=== PATIENT | male | born 1955 | race Caucasian/White ===

== ENCOUNTER 2017-09-18 11:24 | Emergency (ER) | payer OTHER ==
[~2017-09-18] VITALS: Ht 180.3 cm; Wt 103.0 kg
[~2017-09-18 11:24] MED LIST: ADVIL PM CAPLE1 EACH PO; AMBIEN10 MG PO; AMLODIPINE PO; ASPIRIN EC81 MG PO; ATORVASTATIN CA20 MG PO; CENTRUM SILVER1 EAC3 PO; CEREFOLIN TABL1 EACH PO; COREG12.5 MG PO; DIOVAN320 MG PO; FISH OIL 1,0001 EAC2 PO; FUROSEMIDE PO; FUROSEMIDE40 MG PO; HYDROCHLOROTHIA25 MG PO; LEVEMIR SQ; LEVEMIR100 UNIT/1 SQ; METFORMIN HCL500 MG PO; METOPROLOL TART50 MG PO; NEXIUM20 MG PO; OMEPRAZOLE20 MG PO; PANTOPRAZOLE SO40 MG PO; PEGASYS180 MCG/0.; PRAVASTATIN SOD20 MG PO; REGLAN PO; RIBASPHERE600 MG PO; SOVALDI; VASCEPA PO; VICTOZA 2-0.6 MG/0.1 SC; VIT D PO; VITAMIN E400 UNI1 PO
[2017-09-18] MEDS ORDERED: ALLOPURINOL100 MG PO (11:58)
[2017-09-18] MEDS ORDERED: VICTOZA 3-0.6 MG/0.1 (11:58)
[2017-09-18 12:12] VITALS: BP 139/84
== END 2017-09-18 12:14 | disposition home or self-care (01) ==
LOC: FSED 11:24
DX: L02.31 Cutaneous abscess of buttock (principal); L03.115 Cellulitis of right lower limb
CPT/HCPCS: 87071; 87205; 99283

== ENCOUNTER 2017-10-22 07:53 | Observation (INO) | payer OTHER ==
[~2017-10-22] VITALS: Ht 180.3 cm; Wt 103.9 kg
[~2017-10-22 07:53] MED LIST changes: +ALLOPURINOL100 MG PO; +VICTOZA 3-0.6 MG/0.1
[2017-10-22] MEDS ORDERED: ONDANSETRON HCL INJ 2 MG/ML VIAL IV STA (08:34)
[2017-10-22] MEDS ORDERED: HYDROMORPHONE 1MG/1ML INJ IV STA (08:34)
[2017-10-22] MEDS ORDERED: PIPER-TAZ 3.375 GM 50 ML IV ONE (08:45)
[2017-10-22] MEDS ORDERED: METRONIDAZOLE 500MG/NS 100ML 100 ML IV ONE (08:45)
[2017-10-22] MEDS ORDERED: MORPHINE SULFATE 2 MG/ML SYR IV STA (09:12)
[2017-10-22] MEDS ORDERED: SODIUM CHLORIDE 0.9% 1000ML 1,000 ML IV SCH (09:15)
[2017-10-22] MEDS ORDERED: AMLODIPINE BESYL5 MG PO (09:45)
[2017-10-22] MEDS ORDERED: FUROSEMIDE20 MG PO (09:45)
[2017-10-22] MEDS ORDERED: VICTOZA 2-0.6 MG/0.1 SQ (09:45)
[2017-10-22] MEDS ORDERED: IRBESARTAN150 MG PO (09:48)
[2017-10-22] MEDS ORDERED: VITAMIN D1000 UNI1 PO (09:48)
[2017-10-22] MEDS ORDERED: TRESIBA SQ (09:50)
--- NOTE | 2017-10-22 10:11 | Diagnostic Imaging Report ---
EXAM: CT Pelvis WITH contrast INDICATION: ABSCESSES TO THE BUTTOCKS. LEFT-SIDED PERIRECTAL ABSCESS. COMPARISON: None. TECHNIQUE: Pelvis were scanned utilizing a multidetector helical scanner from the iliac crest to the pubic symphysis after administration of IV contrast. Coronal and sagittal reformations were obtained. Routine protocol was performed. Scan was performed when during portal venous phase. IV CONTRAST: 95 mL of Isovue 300 ORAL CONTRAST: Water COMPLICATIONS: None RADIATION DOSE: Total DLP: 391.09 mGy*cm Estimated effective dose: (DLP x 0.015 x size factor) mSv CTDIvol has been reviewed. It is below the limits set by the Radiation Protocol Committee (RPC). FINDINGS: LINES and TUBES: None. GI TRACT: No abnormal distention, wall thickening, or evidence of bowel obstruction. Appendix is normal. PELVIC ORGANS/BLADDER: Unremarkable. LYMPH NODES: No lymphadenopathy. VESSELS: Unremarkable. PERITONEUM / RETROPERITONEUM: No free air or fluid. BONES: Unremarkable. SOFT TISSUES: Soft tissue inflammatory changes measuring 1.5 x 3.2 cm in the left gluteal fold. This extends superiorly but does not involve the anus. No actual fluid collection. IMPRESSION: Left gluteal inflammatory changes without discrete abscess collection. Signed by: Dr. Carter Ramsey M.D. on 10/22/2017 10:07 AM
[2017-10-22] MEDS ORDERED: DEXTROSE 50% SYRINGE 50 ML IV PRN (10:30)
[2017-10-22] MEDS ORDERED: HYDROMORPHONE 1MG/1ML INJ IV PRN (10:30)
[2017-10-22] MEDS ORDERED: MORPHINE SULFATE INJ 4 MG/ML INJ IV ONE (11:30)
[2017-10-22] MEDS: INSULIN REGULAR, HUMAN 100 UNIT/1 ML 3ML VIAL SQ SCH ×3 (11:30→20:39)
[2017-10-22] MEDS: VANCOMYCIN 1GM/NS 250 ML 250 ML IV SCH ×2 (12:25→21:45)
[2017-10-22] MEDS: SODIUM CHLORIDE 0.9% 1000ML 1,000 ML IV SCH (12:25)
[2017-10-22 13:56] LABS: BASOPHILS % 0.3 % (0.0-1.0); EOSINOPHILS # (AUTO) 0.2 (0.0-0.4); EOSINOPHILS % 2.4 % (0.0-6.0); HEMATOCRIT 35.6 % (38.2-49.6); HEMOGLOBIN 12.4 g/dL (14.0-18.0); LYMPHOCYTES # (AUTO) 1.4 (1.0-3.2); LYMPHOCYTES % 13.9 % (18.0-39.1); MEAN CORPUSCULAR HEMOGLOBIN 31.4 pg (28-32); MEAN CORPUSCULAR HGB CONC 34.8 g/dL (31-35); MEAN CORPUSCULAR VOLUME 90.1 fL (81-99); MONOCYTES # (AUTO) 0.9 (0.2-0.8); MONOCYTES % 8.9 % (4.4-11.3); NEUTROPHILS # (AUTO) 7.3 (2.1-6.9); NEUTROPHILS % 74.1 % (38.7-80.0); PLATELET COUNT 186 x10e3/uL (140-360); RED BLOOD COUNT 3.95 x10e6/uL (4.3-5.7)
[2017-10-22] MEDS: METRONIDAZOLE 500MG/NS 100ML 100 ML IV SCH ×3 (14:00→23:35)
[2017-10-22] MEDS: INSULIN LISPRO 100 UNIT/1 ML 3ML VIAL SQ SCH ×2 (16:30→20:40)
[2017-10-22 16:38] VITALS: BP 141/74
--- NOTE | 2017-10-22 16:40 | History and Physical ---
HISTORY OF PRESENT ILLNESS: This is a 61-year-old male with past medical history positive for hypertension, diabetes, aortic valve replacement with a porcine valve, came here with perirectal pain. REVIEW OF SYSTEMS CARDIOVASCULAR: No chest pain or palpitation. RESPIRATORY: No shortness of breath. No cough. GASTROINTESTINAL: No nausea, vomiting or diarrhea. GENITOURINARY: No frequency or dysuria. ALLERGIES: HE CLAIMS THAT HE IS NOT ALLERGIC TO ANY MEDICATION. SOCIAL HISTORY: He does not smoke. He does not drink. PAST MEDICAL HISTORY: Hypertension, diabetes, and aortic stenosis status post porcine aortic valve replacement. PHYSICAL EXAMINATION HEART: Regular rhythm. Normal S1, S2 sounds. LUNGS: Clear bilaterally. ABDOMEN: Soft. EXTREMITIES: Showed no evidence of cyanosis, edema, or trauma. On the perirectal area catheter, some drainage and tenderness. FINAL IMPRESSION 1. Perirectal cellulitis. 2. Uncontrolled diabetes mellitus type 2. 3. Hypertension. 4. Aortic stenosis status post porcine aortic valve replacement. PLAN OF TREATMENT: Continue metronidazole 400 mg IV q.6 hours, vancomycin 1 gram IV twice a day. We are going to resume the home medications, diabetic diet. Monitor blood sugar a.c. and h.s. Consult Dr. Israel Norris for surgery. Job#: [id number] GUILHERME
[2017-10-22] MEDS: VASCEPA 1 GM PO SCH (16:47)
[2017-10-22] MEDS: CARVEDILOL 12.5 MG TAB PO SCH (16:48)
[2017-10-22 19:57] VITALS: BP 133/62
[2017-10-22 20:00] VITALS: BP 133/62
[2017-10-22] MEDS: ZOLPIDEM TARTRATE 10 MG TAB PO PRN (20:46)
[2017-10-22] MEDS: ATORVASTATIN 40 MG TAB PO SCH (20:47)
[2017-10-23] VITALS (8 sets, daily range): BP systolic 118–150; BP diastolic 56–78
[2017-10-23] MEDS: SODIUM CHLORIDE 0.9% 1000ML 1,000 ML IV SCH ×4 (02:57→15:28)
[2017-10-23 04:53] LABS: BASOPHILS % 0.4 % (0.0-1.0); EOSINOPHILS # (AUTO) 0.3 (0.0-0.4); EOSINOPHILS % 2.8 % (0.0-6.0); HEMATOCRIT 32.7 % (38.2-49.6); HEMOGLOBIN 11.3 g/dL (14.0-18.0); LYMPHOCYTES # (AUTO) 1.3 (1.0-3.2); LYMPHOCYTES % 13.4 % (18.0-39.1); MEAN CORPUSCULAR HEMOGLOBIN 31.2 pg (28-32); MEAN CORPUSCULAR HGB CONC 34.6 g/dL (31-35); MEAN CORPUSCULAR VOLUME 90.3 fL (81-99); MONOCYTES % 11.1 % (4.4-11.3); NEUTROPHILS # (AUTO) 6.7 (2.1-6.9); PLATELET COUNT 172 x10e3/uL (140-360); RED BLOOD COUNT 3.62 x10e6/uL (4.3-5.7); RED CELL DISTRIBUTION WIDTH 12.9 % (11.7-14.4)
[2017-10-23 05:04] LABS: INR 1.11; PROTHROMBIN TIME 13.5 seconds (11.9-14.5)
[2017-10-23 05:05] LABS: PARTIAL THROMBOPLASTIN TIME 30.1 seconds (23.8-35.5)
[2017-10-23 05:10] LABS: ANION GAP 13.9 mmol/L (8-16); BLOOD UREA NITROGEN 17 mg/dL (7-26); BUN/CREATININE RATIO 17 (6-25); CALCIUM 8.2 mg/dL (8.4-10.2); CARBON DIOXIDE 25 mmol/L (22-29); CHLORIDE 104 mmol/L (98-107); CREATININE, SERUM 1.02 mg/dL (0.72-1.25); EST GLOMERULAR FILTRATION RATE > 60 ML/MIN (60-); GLUCOSE 91 mg/dL (74-118); POTASSIUM 3.9 mmol/L (3.5-5.1); SODIUM 139 mmol/L (136-145)
[2017-10-23] MEDS: METRONIDAZOLE 500MG/NS 100ML 100 ML IV SCH ×3 (05:13→17:15)
[2017-10-23] MEDS: INSULIN LISPRO 100 UNIT/1 ML 3ML VIAL SQ SCH ×4 (07:30→21:00)
[2017-10-23] MEDS: INSULIN REGULAR, HUMAN 100 UNIT/1 ML 3ML VIAL SQ SCH ×4 (07:30→21:00)
[2017-10-23] MEDS: FUROSEMIDE 20 MG TAB PO SCH (08:06)
[2017-10-23] MEDS: AMLODIPINE BESYLATE 5 MG TAB PO SCH (08:06)
[2017-10-23] MEDS: ALLOPURINOL 100 MG TAB PO SCH (08:06)
[2017-10-23] MEDS: CHOLECALCIFEROL 1,000 UNIT TAB PO SCH (08:06)
[2017-10-23] MEDS: PANTOPRAZOLE SOD 40 MG TABEC PO SCH (08:20)
[2017-10-23] MEDS: ASPIRIN 81 MG ENTERIC COATED PO SCH (08:20)
[2017-10-23] MEDS: IRBESARTAN 150 MG TAB PO SCH (08:20)
[2017-10-23] MEDS: CARVEDILOL 12.5 MG TAB PO SCH ×2 (08:20→17:14)
[2017-10-23] MEDS: LMEFOLATE CA PO SCH (08:50)
[2017-10-23] MEDS: VASCEPA 1 GM PO SCH ×2 (08:50→17:00)
[2017-10-23] MEDS: VIT B12 PO SCH (08:50)
[2017-10-23] MEDS: B2 PO SCH (08:50)
[2017-10-23] MEDS: VIT B6 PO SCH (08:50)
[2017-10-23] MEDS: TRESIBA 100 UNIT/ML SC SCH (08:50)
[2017-10-23] MEDS: Liraglutide (Victoza 2-Pak) 1.8 MG SC SCH (08:51)
[2017-10-23] MEDS: VANCOMYCIN 1GM/NS 250 ML 250 ML IV SCH (10:00)
[2017-10-23] MEDS: ONDANSETRON HCL INJ 2 MG/ML VIAL IV PRN ×2 (12:00→17:30)
[2017-10-23] MEDS: HYDROMORPHONE 2MG/ML 2 MG/ML ML IV PRN ×3 (12:15→23:10)
--- NOTE | 2017-10-23 13:24 | Progress Note ---
DATE: INTERNAL MEDICINE PROGRESS NOTE SUBJECTIVE: Patient is doing better today. PHYSICAL EXAM VITAL SIGNS: Blood pressure 150/73, temperature 97.5, heart rate 86 per minute, respiratory rate 20 per minute. Oxygen saturation 96%. RECTAL: On the perirectal area, excessive tenderness area in the left gluteal area. EXTREMITIES: Show no evidence of cyanosis, edema or trauma. NEUROLOGIC: Alert and oriented x3. No motor deficits. On the BMP, sodium 139, potassium 3.9, chloride 104, CO2 25, BUN 17, creatinine 1.02, glucose 91. On the CBC, white blood count 9.33, hemoglobin 11.3, hematocrit 32.7, platelet count 172,000. PT 13.5, PTT 30.1, INR 1.11. FINAL IMPRESSION 1. Perirectal cellulitis. 2. Hypertension. 3. Hyperlipidemia. 4. Obesity. 5. Diabetes mellitus type 2. PLAN OF TREATMENT: We will continue with the current IV antibiotic therapy which includes metronidazole 500 mg IV q.6 hours, vancomycin 1 gram IV twice a day. Continue with Zofran 4 mg IV q.4 hours as needed for vomiting, Lipitor 40 mg at bedtime. Continue irbesartan 600 mg daily. Continue with Dilaudid 1 mg q.3 hours as needed only for severe pain, allopurinol 100 mg daily, carvedilol 25 mg twice a day, Protonix 40 mg daily, amlodipine 5 mg daily, vitamin D 2000 units daily, Ambien 10 mg at night. p.r.n. for sleep. Continue monitoring blood sugar a.c. and h.s. Continue diabetic diet. Continue aspirin 81 mg daily, furosemide [address] Israel Norris has seen the patient from the surgical point of view. His impression was that he had a left gluteal inflammation with no definitive abscess. He most likely might have a fistula. He recommended to continue the IV antibiotic, no need for incision and drainage yet. He recommended the patient to be discharged on oral antibiotic tomorrow and doing incision and drainage if necessary. Dr. Brooks will resume the care in the morning. Job#: [id number] NICANOR
[2017-10-23] MEDS: ATORVASTATIN 40 MG TAB PO SCH (22:00)
[2017-10-23] MEDS: ZOLPIDEM TARTRATE 10 MG TAB PO PRN (22:05)
[2017-10-24] VITALS (9 sets, daily range): BP systolic 124–150; BP diastolic 58–76
[2017-10-24] MEDS: METRONIDAZOLE 500MG/NS 100ML 100 ML IV SCH ×2 (00:14→06:36)
[2017-10-24] MEDS: SODIUM CHLORIDE 0.9% 1000ML 1,000 ML IV SCH ×2 (02:28→10:28)
[2017-10-24] MEDS: ONDANSETRON HCL INJ 2 MG/ML VIAL IV PRN ×2 (04:00→12:36)
[2017-10-24] MEDS: HYDROMORPHONE 2MG/ML 2 MG/ML ML IV PRN ×2 (04:00→12:36)
[2017-10-24] MEDS: INSULIN LISPRO 100 UNIT/1 ML 3ML VIAL SQ SCH ×4 (07:30→21:00)
[2017-10-24] MEDS: INSULIN REGULAR, HUMAN 100 UNIT/1 ML 3ML VIAL SQ SCH ×4 (07:30→22:56)
[2017-10-24] MEDS: PANTOPRAZOLE SOD 40 MG TABEC PO SCH (07:54)
[2017-10-24] MEDS: Liraglutide (Victoza 2-Pak) 1.8 MG SC SCH (09:00)
[2017-10-24] MEDS: TRESIBA 100 UNIT/ML SC SCH (09:00)
[2017-10-24] MEDS: VASCEPA 1 GM PO SCH ×2 (09:00→16:44)
[2017-10-24] MEDS: LMEFOLATE CA PO SCH (09:00)
[2017-10-24] MEDS: VIT B12 PO SCH (09:00)
[2017-10-24] MEDS: B2 PO SCH (09:00)
[2017-10-24] MEDS: VIT B6 PO SCH (09:00)
[2017-10-24] MEDS: CARVEDILOL 12.5 MG TAB PO SCH ×2 (09:39→16:44)
[2017-10-24] MEDS: CHOLECALCIFEROL 1,000 UNIT TAB PO SCH (09:39)
[2017-10-24] MEDS: AMLODIPINE BESYLATE 5 MG TAB PO SCH (09:39)
[2017-10-24] MEDS: IRBESARTAN 150 MG TAB PO SCH (09:39)
[2017-10-24] MEDS: ASPIRIN 81 MG ENTERIC COATED PO SCH (09:39)
[2017-10-24] MEDS: FUROSEMIDE 20 MG TAB PO SCH (09:39)
[2017-10-24] MEDS: ALLOPURINOL 100 MG TAB PO SCH (09:39)
[2017-10-24 11:00] LABS: BASOPHILS % 0.4 % (0.0-1.0); EOSINOPHILS # (AUTO) 0.2 (0.0-0.4); EOSINOPHILS % 1.7 % (0.0-6.0); HEMATOCRIT 33.9 % (38.2-49.6); HEMOGLOBIN 11.9 g/dL (14.0-18.0); LYMPHOCYTES # (AUTO) 0.9 (1.0-3.2); LYMPHOCYTES % 9.8 % (18.0-39.1); MEAN CORPUSCULAR HEMOGLOBIN 31.5 pg (28-32); MEAN CORPUSCULAR HGB CONC 35.1 g/dL (31-35); MEAN CORPUSCULAR VOLUME 89.7 fL (81-99); MONOCYTES # (AUTO) 0.9 (0.2-0.8); MONOCYTES % 9.4 % (4.4-11.3); NEUTROPHILS # (AUTO) 7.2 (2.1-6.9); NEUTROPHILS % 78.3 % (38.7-80.0); PLATELET COUNT 179 x10e3/uL (140-360); RED BLOOD COUNT 3.78 x10e6/uL (4.3-5.7); RED CELL DISTRIBUTION WIDTH 12.8 % (11.7-14.4)
[2017-10-24] MEDS: VANCOMYCIN 1GM/NS 250 ML 250 ML IV SCH ×3 (11:17→21:30)
[2017-10-24] MEDS: CEFEPIME HCL 1 GM VIAL IV SCH ×2 (11:17→21:43)
[2017-10-24 11:18] LABS: ALANINE AMINOTRANSFERASE 25 IU/L (0-55); ALBUMIN/GLOBULIN RATIO 1.1 (0.8-2.0); ALKALINE PHOSPHATASE 76 IU/L (40-150); ANION GAP 11.2 mmol/L (8-16); BLOOD UREA NITROGEN 13 mg/dL (7-26); BUN/CREATININE RATIO 13 (6-25); CALCIUM 8.8 mg/dL (8.4-10.2); CARBON DIOXIDE 27 mmol/L (22-29); CHLORIDE 101 mmol/L (98-107); CREATININE, SERUM 1.04 mg/dL (0.72-1.25); EST GLOMERULAR FILTRATION RATE > 60 ML/MIN (60-); GLUCOSE 129 mg/dL (74-118); POTASSIUM 4.2 mmol/L (3.5-5.1); SODIUM 135 mmol/L (136-145)
[2017-10-24] MEDS ORDERED: INSULIN DETEMIR 100 UNIT/ML PEN SQ SCH ×2 (17:00→21:00)
[2017-10-24] MEDS: ZOLPIDEM TARTRATE 10 MG TAB PO PRN (21:27)
[2017-10-24] MEDS: ATORVASTATIN 40 MG TAB PO SCH (21:30)
[2017-10-25] VITALS: BP 140/64
[2017-10-25 04:00] VITALS: BP 172/77
[2017-10-25] MEDS: HYDROMORPHONE 2MG/ML 2 MG/ML ML IV PRN ×3 (04:54→15:08)
[2017-10-25] MEDS: ONDANSETRON HCL INJ 2 MG/ML VIAL IV PRN (04:55)
[2017-10-25 05:09] LABS: BASOPHILS % 0.5 % (0.0-1.0); EOSINOPHILS # (AUTO) 0.3 (0.0-0.4); EOSINOPHILS % 3.5 % (0.0-6.0); HEMATOCRIT 33.6 % (38.2-49.6); HEMOGLOBIN 11.8 g/dL (14.0-18.0); LYMPHOCYTES # (AUTO) 1.3 (1.0-3.2); LYMPHOCYTES % 16.6 % (18.0-39.1); MEAN CORPUSCULAR HEMOGLOBIN 31.2 pg (28-32); MEAN CORPUSCULAR HGB CONC 35.1 g/dL (31-35); MEAN CORPUSCULAR VOLUME 88.9 fL (81-99); MONOCYTES # (AUTO) 0.9 (0.2-0.8); MONOCYTES % 11.8 % (4.4-11.3); NEUTROPHILS # (AUTO) 5.2 (2.1-6.9); NEUTROPHILS % 67.1 % (38.7-80.0); PLATELET COUNT 184 x10e3/uL (140-360); RED BLOOD COUNT 3.78 x10e6/uL (4.3-5.7); RED CELL DISTRIBUTION WIDTH 12.8 % (11.7-14.4)
[2017-10-25 05:33] LABS: ALANINE AMINOTRANSFERASE 23 IU/L (0-55); ALBUMIN 2.8 g/dL (3.5-5.0); ALKALINE PHOSPHATASE 72 IU/L (40-150); ANION GAP 13.6 mmol/L (8-16); BLOOD UREA NITROGEN 12 mg/dL (7-26); BUN/CREATININE RATIO 11 (6-25); CALCIUM 9.1 mg/dL (8.4-10.2); CARBON DIOXIDE 28 mmol/L (22-29); CHLORIDE 106 mmol/L (98-107); CREATININE, SERUM 1.09 mg/dL (0.72-1.25); EST GLOMERULAR FILTRATION RATE > 60 ML/MIN (60-); GLUCOSE 96 mg/dL (74-118); POTASSIUM 3.6 mmol/L (3.5-5.1); SODIUM 144 mmol/L (136-145)
[2017-10-25 08:00] VITALS: BP 178/79
--- NOTE | 2017-10-25 10:31 | Discharge Summary ---
ADMITTING DIAGNOSES 1. Left buttock abscess. 2. Type-2 diabetes mellitus. 3. Hypertensive heart disease. 4. Chronic systolic/diastolic congestive heart failure. DISCHARGE DIAGNOSES 1. Status post incision and drainage of left buttock abscess. 2. Left buttock abscess with surrounding cellulitis, resolving. 3. Type-2 diabetes mellitus with neuropathy. 4. Hypertensive heart disease. 5. Chronic systolic/diastolic congestive heart failure. HOSPITAL COURSE: This 61-year-old white man was initially admitted to [facility] with a diagnosis of left buttock abscess with surrounding cellulitis. During this hospitalization, the patient improved clinically with intravenous antibiotics, vancomycin and cefepime. On admission, the patient's white blood cell count was 9800 with 74% segmented neutrophils. On the day of discharge, the patient's white blood cell count was 7800 with 67% segmented neutrophils. During this hospitalization, blood cultures did not reveal any growth. Also during this hospitalization, the patient was seen by general surgery, namely Dr. Tom Norris, who performed incision and drainage of the left buttock abscess. The patient's hospitalization was unremarkable. CONDITION ON DISCHARGE: Stable. DISCHARGE MEDICATIONS 1. Mupirocin 2% ointment applied to bilateral nostrils and buttock wound twice a day for 10 days. 2. Bactrim DS 1 b.i.d. for 10 days. 3. Tresiba insulin 42 units daily. 4. Atorvastatin 40 mg nightly. 5. Zolpidem 10 mg nightly for insomnia. 6. Carvedilol 25 mg b.i.d. 7. Irbesartan 300 mg daily. 8. Furosemide 40 mg daily. 9. Vitamin D3 2,000 units daily. 10. Aspirin 81 mg daily. 11. Amlodipine 5 mg daily. 12. Allopurinol 100 mg daily. 13. Pantoprazole 40 mg daily. 14. Victoza 0.6 mg subcutaneous daily. 15. Vascepa 2 g b.i.d. 16. Centrum Silver once daily. 17. Cerefolin 1 tablet daily. 18. Tylenol # 3 b.i.d. prn pain, 12 prescribed. FOLLOWUP INSTRUCTIONS: The patient was instructed to follow up with his primary care physician, namely myself Dr. Alex Esparza, within the next 10 to 14 days. The patient was instructed to follow up with the general surgeon, namely Dr. Tom Norris, in the next 7 to 10 days. ALEX ESPARZA MD Job#: [id number] cc: TOM NORRIS MD [facility]
[2017-10-25 12:00] VITALS: BP 160/72
[2017-10-25] MEDS ORDERED: LIDOCAINE JELLY 2% 10ML URO-JET ONE (12:20)
[2017-10-25] MEDS ORDERED: BUPIVACAINE 0.25%/EPI 30ML SDV INJ ONE (12:20)
[2017-10-25] MEDS ORDERED: LIDOCAINE HCL 2% LOCAL 20 ML VIAL ONE (12:23)
[2017-10-25] MEDS ORDERED: LIDOCAINE HCL 2% 30 ML TUBE ONE (12:23)
[2017-10-25] MEDS ORDERED: GELATIN SPONGE SZ 100 ONE (12:38)
[2017-10-25] MEDS ORDERED: SEVOFLURANE INHAL SOLN 250 ML PEN BTL ONE (13:20)
[2017-10-25] MEDS ORDERED: LIDOCAINE HCL 2% LOCAL INJ 5 ML SDV VIAL INJ ONE (13:20)
[2017-10-25] MEDS ORDERED: PROPOFOL IV EMULSION 10 MG/ML 20 ML VIAL ONE (13:20)
[2017-10-25] MEDS ORDERED: KETOROLAC TROMETHAMINE 30 MG/ML VIAL ONE (13:20)
[2017-10-25] MEDS ORDERED: ONDANSETRON HCL INJ 2 MG/ML VIAL ONE (13:20)
[2017-10-25 14:45] VITALS: BP 164/82
[2017-10-25] MEDS ORDERED: FENTANYL CITRATE/PF 100MCG/2 ML INJ ONE (14:55)
[2017-10-25] MEDS ORDERED: MIDAZOLAM HCL 2 MG/2 ML VIAL ONE (14:55)
[2017-10-25] MEDS ORDERED: MUPIROCIN22 GM TOP (14:56)
[2017-10-25] MEDS ORDERED: BACTRIM DS TAB1 EACH PO (14:57)
--- NOTE | 2017-10-25 15:07 | Operative Report ---
DATE OF PROCEDURE: October 25, 2017 PREOPERATIVE DIAGNOSIS: Perirectal abscess with fistula. POSTOPERATIVE DIAGNOSIS: Perirectal abscess with fistula. OPERATION PERFORMED: Incision and drainage of perirectal abscess and anorectal fistulectomy. ANESTHESIA: General. COMPLICATIONS: None. ESTIMATED BLOOD LOSS: Minimal. DESCRIPTION OF PROCEDURE: With the patient lying in bed in the lithotomy position under good general anesthesia, the perineum was prepped with Betadine solution and draped in the usual manner. The area of fluctuance at the 2 o'clock position was then opened, and immediately some necrotic tissue was encountered and some purulent material was encountered and this was all aspirated. A fistula probe was then placed and easily passed into an internal opening. The whole fistula tract was then opened with the cautery, and all of the abscess cavity was then sharply debrided with all the necrotic tissue being resected. The whole area was then thoroughly irrigated. Hemostasis was ascertained. The whole area was then infiltrated with 1/4 percent Marcaine solution. A Gelfoam pack impregnated with Xylocaine was placed. A dressing was applied. The sponge, lap and needle count was correct. The patient tolerated the procedure well and returned to the recovery room in stable condition. Job#: [id number] EV
[2017-10-25] MEDS: CARVEDILOL 12.5 MG TAB PO SCH (15:50)
[2017-10-25] MEDS: AMLODIPINE BESYLATE 5 MG TAB PO SCH (15:50)
[2017-10-25] MEDS: IRBESARTAN 150 MG TAB PO SCH (15:51)
== END 2017-10-25 16:18 | disposition home or self-care (01) ==
LOC: FSED 07:53 → ERHOLD 10:41 → IMCU 12:18 → MED/SURG2 10-23 06:11
PROVIDERS: ADMIT Internal Medicine; ATTEND Internal Medicine
DX: K60.5 Anorectal fistula (principal); L03.317 Cellulitis of buttock; E11.65 Type 2 diabetes mellitus with hyperglycemia; E78.5 Hyperlipidemia, unspecified; Z86.19 Personal history of other infectious and parasitic diseases; Z95.2 Presence of prosthetic heart valve; F41.9 Anxiety disorder, unspecified; E66.9 Obesity, unspecified; M10.9 Gout, unspecified; Z68.32 Body mass index [BMI] 32.0-32.9, adult; E11.42 Type 2 diabetes mellitus with diabetic polyneuropathy; I11.0 Hypertensive heart disease with heart failure; I50.42 Chronic combined systolic (congestive) and diastolic (congestive) heart failure
CPT/HCPCS: 36415 ×4; 46270; 72193; 80048; 80053 ×3; 80202; 82948 ×4; 83036; 85025 ×4; 85610 ×2; 85730; 87040; 93005; 96361; 99284; G0378 ×4; J0692; J1170 ×5; J1885; J2001; J2250; J2270; J2405 ×4; J2543; J3370 ×3; J7030 ×2; S0164

== ENCOUNTER → 2018-07-07 | Day surgery (SDC) | payer OTHER ==
[2018-07-06 10:56] LABS: BASOPHILS # (AUTO) 0.1 (0.0-0.1); BASOPHILS % 0.6 % (0.0-1.0); EOSINOPHILS # (AUTO) 0.4 (0.0-0.4); EOSINOPHILS % 4.3 % (0.0-6.0); HEMATOCRIT 39.7 % (38.2-49.6); LYMPHOCYTES # (AUTO) 1.4 (1.0-3.2); LYMPHOCYTES % 16.6 % (18.0-39.1); MEAN CORPUSCULAR HEMOGLOBIN 31.7 pg (28-32); MEAN CORPUSCULAR HGB CONC 35.3 g/dL (31-35); MEAN CORPUSCULAR VOLUME 89.8 fL (81-99); MONOCYTES # (AUTO) 0.9 (0.2-0.8); MONOCYTES % 10.7 % (4.4-11.3); NEUTROPHILS # (AUTO) 5.8 (2.1-6.9); NEUTROPHILS % 67.1 % (38.7-80.0); PLATELET COUNT 229 x10e3/uL (140-360); RED BLOOD COUNT 4.42 x10e6/uL (4.3-5.7); RED CELL DISTRIBUTION WIDTH 12.9 % (11.7-14.4)
[2018-07-06 11:23] LABS: ALBUMIN 4.2 g/dL (3.5-5.0); ALBUMIN/GLOBULIN RATIO 1.3 (0.8-2.0); ANION GAP 11.3 mmol/L (8-16); CALCIUM 10.4 mg/dL (8.4-10.2); CREATININE, SERUM 1.75 mg/dL (0.72-1.25); POTASSIUM 4.3 mmol/L (3.5-5.1)
[2018-07-07] VITALS (15 sets, daily range): BP systolic 93–128; BP diastolic 55–79
[~2018-07-07] VITALS: Ht 180.3 cm; Wt 102.1 kg
[~2018-07-07] MED LIST changes: +ALPRAZOLAM 0.5 MG TAB ONE; +AMLODIPINE BESYL5 MG PO; +ASPIRIN 325 MG TAB ONE; +BACTRIM DS TAB1 EACH PO; +BIVALRIUDIN 250 MG/VIAL VIAL IV ONE; +CYCLOBENZAPRINE10 MG PO; +DIOVAN HCT 3201 EACH PO; +DIPHENHYDRAMINE HCL 25 MG CAP ONE; +FENTANYL CITRATE/PF 100MCG/2 ML INJ ONE; +FUROSEMIDE20 MG PO; +HEPARIN SOD/SOD CHLORIDE 2,000 ML ONE; +IOPAMIDOL 370 MG/ML 200 ML INFUS..BTL INJ ONE; +IRBESARTAN150 MG PO; +LIDOCAINE HCL 2% LOCAL 20 ML VIAL ONE; +MIDAZOLAM HCL 2 MG/2 ML VIAL ONE; +MUPIROCIN22 GM TOP; +SODIUM CHLORIDE 0.9% 1000ML 1,000 ML ONE; +SODIUM CHLORIDE 0.9% 50ML 50 ML ONE; +TICAGRELOR 90 MG TABLET ONE; +TRESIBA SQ; +VERAPAMIL HCL 2.5 MG/ML 2 ML VIAL ONE; +VICTOZA 2-0.6 MG/0.1 SQ; +VITAMIN B-12500 MCG PO; +VITAMIN D1000 UNI1 PO
--- NOTE | 2018-07-07 11:42 | NUR ---
11:20 Received pt in #20 Identifierx2. [facility] for abnormal stress test .Prepped in normal fashion for left TR band approach. Pre medicated ,Pre assessment completed. Side rails up call light at bedside. Family called to bedside. Aware of importance to call for assistance SR up bed in low position call light at bedside Report to Damian SANTOS ready for procedure. ds/zackary
--- NOTE | 2018-07-07 14:30 | NUR ---
1430 Received pt in rm #10 Identifierx2 [facility] stent fix to LADx1. Rt TR ban d approach Handoff Damian RN Back to baseline orientation Resp shallow and regular. Abdomen soft and non tender denies necessity to defecate or urinate. Bilateral femoral pulses present RT TR band ok to reduce air at 1545(13cc in balloon) Left iv w/o s/s infiltration. 100cchr till dc. at bedside explained POC knows importance of f/o care Has jane dc planning Denies CP or SOB NO oozing or hematoma at TR band site. NO gross issues pain pallor pressure or dysrhythmia. ds/rn
--- NOTE | 2018-07-07 15:45 | NUR ---
1545 TR band air remove stable -2cc w/o hematoma or bleeding. Progressed air removal q15min till removed. Coban 2x2 gauze and wrist splint in Place. Maintained neuro vascular function. Aware of importance f/o care and precautions on site and pt state understanding. No gross issues with pain,pallor,pressure or dysrhythmia. ds/rn
--- NOTE | 2018-07-07 17:00 | NUR ---
1700 TR band off successfully. Coban Dressing with 2x2 sterile and wrist splint on Reviewed DC plans with pt and and has adequate understanding with copies of POC and Prescription to fill by pt RX preference. Did also supply pt with teaching tool of new med ordered Prasugrel 10mg daily.Pt and family know importance of f/o care Escorted to car per w/c post iv removed w/o s/s infiltration. Coban dressing in place. No gross issures with pain,pallor,pressure or dysrhythmia. No hematoma or bleeding at any sites. Denies CP or SOB. ds/rn
--- NOTE | 2018-07-08 02:02 | Operative Report ---
DATE OF PROCEDURE: 07/07/2018 SURGEON: Crispin Ly MD PROCEDURE: Cardiac dental laboratory supervisor procedure. INDICATION: Coronary artery disease, angina with abnormal stress test. PROCEDURES PERFORMED: 1. Left heart catheterization, selective coronary angiography. 2. PTCA and stent placed in the proximal left anterior descending artery. 3. Deployment of right wrist TR band. COMPLICATIONS: None. RECOMMENDATIONS: Dual antiplatelet therapy for 3-6 months. DESCRIPTION OF PROCEDURE: Access obtained in the right radial artery. A 6-Hungarian sheath was placed. Diagnostic coronary angiogram revealed 80% stenosis in the proximal left anterior descending artery. Right coronary artery and circumflex had mild less than 20% luminal stenosis. A decision was made to intervene on the left anterior descending artery. The patient received intravenous Angiomax and oral Brilinta and aspirin for anticoagulation. The left main was cannulated using a 5-Hungarian HENRY guiding catheter. A Hi-Torque floppy wire was advanced across the lesion for support, primary stent 3.0 x 18 mm post dilated with a 3.75 mm balloon, excellent end result, less than 10% residual stenosis, RUSSELL-3 flow. No complications. Right wrist TR band applied. The patient was discharged home same day. Crispin Ly MD KSB/MODL /[id number]
== END | disposition home or self-care (01) ==
LOC: CATH LAB 10:44
PROVIDERS: ATTEND Internal Medicine Interventional Cardiology
DX: I25.118 Atherosclerotic heart disease of native coronary artery with other forms of angina pectoris (principal); R94.39 Abnormal result of other cardiovascular function study; I10 Essential (primary) hypertension; Z95.2 Presence of prosthetic heart valve; I87.2 Venous insufficiency (chronic) (peripheral); Z01.812 Encounter for preprocedural laboratory examination; Z79.82 Long term (current) use of aspirin; Z79.84 Long term (current) use of oral hypoglycemic drugs; Z68.32 Body mass index [BMI] 32.0-32.9, adult; Z82.49 Family history of ischemic heart disease and other diseases of the circulatory system
CPT/HCPCS: 36415; 76937; 80053; 85025; 92928; 93454; C1725; C1769 ×2; C1874; C1887 ×2; J0583; J2001; J2250; J7030; Q9967

== ENCOUNTER → 2018-10-27 | Day surgery (SDC) | payer OTHER ==
[2018-10-26 14:42] LABS: BASOPHILS # (AUTO) 0.1 (0.0-0.1); BASOPHILS % 0.5 % (0.0-1.0); EOSINOPHILS # (AUTO) 0.3 (0.0-0.4); EOSINOPHILS % 2.9 % (0.0-6.0); HEMOGLOBIN 14.7 g/dL (14.0-18.0); LYMPHOCYTES # (AUTO) 2.1 (1.0-3.2); LYMPHOCYTES % 19.3 % (18.0-39.1); MEAN CORPUSCULAR HEMOGLOBIN 31.9 pg (28-32); MEAN CORPUSCULAR HGB CONC 35.9 g/dL (31-35); MEAN CORPUSCULAR VOLUME 88.9 fL (81-99); MONOCYTES # (AUTO) 1.1 (0.2-0.8); MONOCYTES % 9.6 % (4.4-11.3); NEUTROPHILS # (AUTO) 7.3 (2.1-6.9); NEUTROPHILS % 66.7 % (38.7-80.0); PLATELET COUNT 259 x10e3/uL (140-360); RED BLOOD COUNT 4.61 x10e6/uL (4.3-5.7); RED CELL DISTRIBUTION WIDTH 13.1 % (11.7-14.4)
[2018-10-26 15:02] LABS: ALBUMIN 3.8 g/dL (3.5-5.0); ALBUMIN/GLOBULIN RATIO 1.1 (0.8-2.0); ANION GAP 14.3 mmol/L (8-16); CALCIUM 9.8 mg/dL (8.4-10.2); CREATININE, SERUM 1.46 mg/dL (0.72-1.25); POTASSIUM 4.3 mmol/L (3.5-5.1)
--- NOTE | 2018-10-26 15:32 | NUR ---
Dr. Ly notified of BUN 29, creatinine 1.46 and eGFR 49 and patient reports history of 40% kidney function.
[2018-10-27] VITALS (9 sets, daily range): BP systolic 82–153; BP diastolic 46–70
[~2018-10-27] VITALS: Ht 180.3 cm; Wt 99.8 kg
[~2018-10-27] MED LIST changes: -ASPIRIN 325 MG TAB ONE; +DIOVAN160 MG PO; +EFFIENT10 MG PO; +HEPARIN SOD (PORCINE) 1000 UNIT/ML 30ML ONE; +NITROGLYCERIN/D5W 200 MCG/ML 250 ML ONE; -TICAGRELOR 90 MG TABLET ONE
--- NOTE | 2018-10-27 12:45 | NUR ---
1245Bedside report received from DANIELLE Aguirre. Identifierx2.Alert oriented and appropriate, PERRLA, respirations even and unlabored to room air. Pulses x4 entreaties equal and strong. Pedal pulses PT/DP x4 and Cap fill brisk < 3 sec. Skin warm and dry integrity appears D/I. IV 20g to left arm at 100cchr via iv controller presents healthy w/o s/s of infiltration or complaint. Abdomen soft and supple. pt offered toileting, denies need to urinate or defecate. No personal affects with patient. Family Genet at bedside [phone]. Pt and family verbalizes understanding of POC. Rt TR band site intac w/o any gross signs pain,pallor,pressure or dysthymia. Normal neuro vascular function For air removal at 3pm. Currently w/o complaint of pain or need.ds/rn
--- NOTE | 2018-10-27 15:00 | NUR ---
1500pm RADIAL Compression removal: Initial Cuff volume 12 cc 1500p -2cc Removed No hematoma/bleeding noted with normal neurovascular function. 1515p -5cc Removed No hematoma/ bleeding noted with normal neurovascular function. 1530 -5cc Removed No hematoma/bleeding noted with normal neurovascular function. Air removal completed. Stasis achieved sterile 2x2,Tegaderm, Coban dressing No hematoma, bleeding noted with normal neurovascular function. Wrist splint in place. Pt instructed on POC. Ds/Rn
--- NOTE | 2018-10-27 16:00 | NUR ---
1600 Pt meets DC criteria. Rt TR band assessed for s/s of complication .Pt meets DC criteria. assessed for s/s of complication and presence of hematoma. Skin warm, dry, no discolor, and pulses present. IV removed from left arm. Distal tip appears intact. VS WNL. Pt denies pain, sob, or need at this time. Family at bedside,Genet . Review of discharge paperwork and follow up instructions. verbalized understanding. has copies of DC paperwork in hand assist to w/c per [facility] escort NO gross issues pain pallor,pressure or dysrhythmia. ds/rn
--- NOTE | 2018-10-28 16:50 | Operative Report ---
DATE OF PROCEDURE: 10/27/2018 SURGEON: Crispin Ly MD INDICATIONS: Coronary artery disease. PROCEDURES PERFORMED: 1. Left heart catheterization, selective coronary angiography. 2. Intravascular ultrasound of the left anterior descending artery. 3. Deployment of right wrist TR band. COMPLICATIONS: None. RECOMMENDATIONS: Cardiac cleared for cessation of dual antiplatelet therapy. DESCRIPTION OF PROCEDURE: Access obtained in the right radial artery. A 5-Macedonian sheath was placed. The patient received Angiomax for anticoagulation. The left main was cannulated using an EBU 3.75, 5-Macedonian guiding catheter. A short run-through wire was advanced across the stent in the left anterior descending artery and intravascular high-definition ultrasound was performed. Greater than 95% endothelial coverage of the stent struts was noted. No intervention necessary. Right wrist TR band applied. The patient discharged home same day. MD DEBBIE Mc/MODL /[id number]
== END | disposition home or self-care (01) ==
LOC: CATH LAB 09:12
PROVIDERS: ATTEND Internal Medicine Interventional Cardiology
DX: I25.10 Atherosclerotic heart disease of native coronary artery without angina pectoris (principal); I10 Essential (primary) hypertension; Z95.2 Presence of prosthetic heart valve; I87.2 Venous insufficiency (chronic) (peripheral); I25.118 Atherosclerotic heart disease of native coronary artery with other forms of angina pectoris; Z01.812 Encounter for preprocedural laboratory examination; Z68.31 Body mass index [BMI] 31.0-31.9, adult; Z87.891 Personal history of nicotine dependence
CPT/HCPCS: 36415; 76937; 80053; 85025; 93454; C1753; C1769; C1887; J0583; J1644; J2001; J2250; J3010; J7030; Q9967; 92978

== ENCOUNTER 2018-11-06 08:48 | Inpatient (IN) | payer OTHER ==
[2018-11-03 13:16] LABS: BASOPHILS % 0.4 % (0.0-1.0); EOSINOPHILS # (AUTO) 0.2 (0.0-0.4); EOSINOPHILS % 2.7 % (0.0-6.0); HEMATOCRIT 36.8 % (38.2-49.6); HEMOGLOBIN 13.2 g/dL (14.0-18.0); LYMPHOCYTES # (AUTO) 1.4 (1.0-3.2); LYMPHOCYTES % 16.6 % (18.0-39.1); MEAN CORPUSCULAR HEMOGLOBIN 31.7 pg (28-32); MEAN CORPUSCULAR HGB CONC 35.9 g/dL (31-35); MEAN CORPUSCULAR VOLUME 88.5 fL (81-99); MONOCYTES # (AUTO) 0.8 (0.2-0.8); MONOCYTES % 9.2 % (4.4-11.3); NEUTROPHILS % 70.4 % (38.7-80.0); PLATELET COUNT 224 x10e3/uL (140-360); RED BLOOD COUNT 4.16 x10e6/uL (4.3-5.7); RED CELL DISTRIBUTION WIDTH 12.9 % (11.7-14.4)
[2018-11-03 13:29] LABS: INR 0.85; PROTHROMBIN TIME 12.1 seconds (11.9-14.5)
[2018-11-03 13:30] LABS: PARTIAL THROMBOPLASTIN TIME 25.6 seconds (23.8-35.5)
[2018-11-03 13:33] LABS: ANION GAP 11.3 mmol/L (8-16); CALCIUM 9.2 mg/dL (8.4-10.2); CREATININE, SERUM 1.61 mg/dL (0.72-1.25); POTASSIUM 4.3 mmol/L (3.5-5.1)
--- NOTE | 2018-11-03 13:33 | Diagnostic Imaging Report ---
EXAMINATION: CHEST 2 VIEWS INDICATION: Hip pain ^PREOP ^[id number] ^1250 COMPARISON: 01/31/2014 FINDINGS: TUBES and LINES: Sternal wires. LUNGS: Lungs are well inflated. Lungs are clear. There is no evidence of pneumonia or pulmonary edema. PLEURA: No pleural effusion or pneumothorax. HEART AND MEDIASTINUM: The cardiomediastinal silhouette is unremarkable. BONES AND SOFT TISSUES: No acute osseous lesion. Soft tissues are unremarkable. Chronic appearing deformity of the distal right clavicle. UPPER ABDOMEN: No free air under the diaphragm. IMPRESSION: No acute thoracic abnormality. Signed by: Dr. Ramirez Kenney M.D. on 11/03/2018 1:29 PM
[~2018-11-06] VITALS: Ht 180.3 cm; Wt 100.2 kg
[~2018-11-06 08:48] MED LIST changes: -ALPRAZOLAM 0.5 MG TAB ONE; -BIVALRIUDIN 250 MG/VIAL VIAL IV ONE; -DIPHENHYDRAMINE HCL 25 MG CAP ONE; -FENTANYL CITRATE/PF 100MCG/2 ML INJ ONE; -HEPARIN SOD (PORCINE) 1000 UNIT/ML 30ML ONE; -HEPARIN SOD/SOD CHLORIDE 2,000 ML ONE; -IOPAMIDOL 370 MG/ML 200 ML INFUS..BTL INJ ONE; -LIDOCAINE HCL 2% LOCAL 20 ML VIAL ONE; -MIDAZOLAM HCL 2 MG/2 ML VIAL ONE; -NITROGLYCERIN/D5W 200 MCG/ML 250 ML ONE; +ROPIVACAINE 246.25 MG, EPINEPHRINE HCL 1:1000 1ML 0.5 MG, CLONIDINE HCL 0.08 MG, KETORO... INJ ONE; -SODIUM CHLORIDE 0.9% 1000ML 1,000 ML ONE; -SODIUM CHLORIDE 0.9% 50ML 50 ML ONE; -VERAPAMIL HCL 2.5 MG/ML 2 ML VIAL ONE
[2018-11-06] MEDS ORDERED: CELECOXIB 200 MG CAP ONE (09:14)
[2018-11-06] MEDS ORDERED: DEXAMETHASONE SOD PHOS 10 MG/1 ML VIAL ONE (09:15)
[2018-11-06] MEDS ORDERED: GABAPENTIN 300 MG CAP ONE (09:15)
[2018-11-06] MEDS ORDERED: CEFAZOLIN SOD 1 GM/NS 50ML 100 ML IV ONE (09:28)
[2018-11-06] MEDS ORDERED: SODIUM CHLORIDE 0.9% 500ML 500 ML ONE (09:35)
[2018-11-06] MEDS ORDERED: VANCOMYCIN HCL 1,000 MG ONE (09:35)
[2018-11-06] MEDS ORDERED: BACITRACIN 50,000 UNIT VIAL ONE (09:35)
[2018-11-06] MEDS ORDERED: TRANEXAMIC ACID 1,000 MG/10 ML ML ONE (09:35)
[2018-11-06] MEDS ORDERED: BUPIVACAINE 7.5MG/ML /DEXTROSE 82.5MG/ML 2 ML AMP INJ ONE (10:00)
[2018-11-06] MEDS ORDERED: DOCUSATE SODIUM 100 MG CAP PO PRN (12:00)
[2018-11-06] MEDS ORDERED: ACETAMINOPHEN 650 MG SUPP PR PRN (12:00)
[2018-11-06] MEDS ORDERED: HYDROCODONE/APAP 5MG-325MG TAB PO PRN (12:00)
[2018-11-06] MEDS ORDERED: PROMETHAZINE HCL (IM) 25 MG/ML VIAL IM PRN (12:00)
[2018-11-06] MEDS ORDERED: DIPHENHYDRAMINE HCL INJ 50 MG/ML VIAL IM/IV PRN (12:00)
[2018-11-06] MEDS ORDERED: SODIUM CHLORIDE 0.9% 1000ML 1,000 ML IV SCH (12:00)
[2018-11-06] MEDS ORDERED: ONDANSETRON HCL INJ 2MG/ML 2ML 2 MG/ML VIAL IV PRN (12:00)
[2018-11-06] MEDS ORDERED: HYDROCODONE/APAP 7.5MG-325MG 1 EA TAB PO PRN (12:00)
[2018-11-06] MEDS: ACETAMINOPHEN 1000 MG/100 ML IV SCH ×3 (12:00→23:56)
--- NOTE | 2018-11-06 12:35 | Diagnostic Imaging Report ---
EXAMINATION: PELVIS AP 1-2 VIEWS INDICATION: Postoperative COMPARISON: CT pelvis of 10/22/2017 FINDINGS: Portable AP view of the pelvis demonstrates immediate postoperative findings of left total hip replacement. Alignment is anatomic. No unexpected fracture. Small amount of subcutaneous gas. Surgical skin esther in place. IMPRESSION: Anatomic alignment status post left total hip replacement. Signed by: Darnell Stoddard MD on 11/06/2018 12:32 PM
[2018-11-06 13:30] VITALS: BP 124/62
--- NOTE | 2018-11-06 13:30 | NUR ---
RECEIVED PT TO FLOOR [id number] PT IS IN NO S.S OF DISTRESS, DENIES PAIN PT LEFT HIP DRESSING IS DRY AND INTACT FOOT PUMPS AND STOCKING PRESENT ABDUCTOR PILLOW PRESENT IV TO THE RIGHT HAND 20 WITH LR RUNNING, SITE IS CLEAN AND DRY WILL CONTINUE TO MONITOR PT CLOSELY SIDE RAILSX2, BED WHEELS LOCKED ,CALL LIGHT IS WITHIN EASY REACH INSTRUCTED TO CALL FOR ASSISTANCE IF NEEDED
[2018-11-06 14:09] VITALS: BP 124/62
--- NOTE | 2018-11-06 14:58 | Operative Report ---
DATE OF PROCEDURE: 11/06/2018 SURGEON: Josué Bingham MD PLASTICS SPREADING MACHINE OPERATOR: Todd Viramontes, certified PA. PREOPERATIVE DIAGNOSIS: Osteoarthritis, left hip. POSTOPERATIVE DIAGNOSIS: Osteoarthritis, left hip. PROCEDURE: Left total hip arthroplasty. INDICATIONS: The patient is a 62-year-old gentleman with end-stage arthritis of his left hip. He has failed conservative management and would like to proceed with a left total hip replacement. The risks and benefits have been discussed. The recovery has been explained. He states he understands and wishes to proceed. PROCEDURE IN DETAIL: The patient was brought to the operating room and placed under spinal anesthetic. He was then given a light general anesthetic. He received tranexamic acid and prophylactic antibiotics in the holding area. He was positioned in the right lateral decubitus position. His left hip was prepped and draped in a sterile manner. A preoperative time-out was performed. A posterior approach was made to the left hip. Care was taken to avoid injury to the sciatic nerve. Hemostasis was obtained with electrocautery. The posterior capsule was carefully exposed and released. Further hemostasis was obtained with electrocautery. The posterior capsule was preserved for later repair. Acetabular retractors were carefully placed. Labral remnants were excised. The true floor of the acetabulum was established with a 46 mm reamer. A [employer] OsseoTi socket acetabular system was used. The socket was sequentially reamed up to 55 mm. This accomplished bleeding hemispherical cancellous bone. I had expected to encounter a large subchondral cyst, but I did not see it. A 56 mm outer diameter socket was then impacted into place. Good bone quality was encountered. Fixation was augmented with a 25 mm cancellous screw. The hip had been thoroughly irrigated on several occasions with a shower tip pulsatile lavage. A highly cross-linked polyethylene liner with a 36 mm inner diameter was then impacted into place. Care was taken to make sure that there was no evidence of soft tissue interposition. A portion of a 100 mL premixed pericapsular FABI injection was then placed into the surrounding soft tissue. The socket was packed with a moistly soaked lap sponge and then attention was directed towards the proximal femur. A box cutting osteotome and taper pin reamers were used to establish entry to the femoral canal. The Taperloc broaches were then sequentially impacted. A size 13 stem had good canal fill and rotational stability. Trial reductions were performed. I felt that a standard neck and 36 mm head provided appropriate quaker of limb length and stability through a full arc of motion. The trial implants were removed. The hip was further irrigated with a pulsatile lavage. The implant was seated to the previous level. A ceramic 36 mm head with a standard sleeve was seated onto a clean and dry trunnion of the stem. A final reduction was performed. Once again, the hip was put through a full arc of motion and felt to be stable. The posterior capsule was carefully repaired with interrupted #2 Ethibond. A 500 mg of vancomycin powder were sprinkled into the deep aspect of the joint. The gluteal fascia was closed with interrupted #2 Ethibond. The skin was closed with subcuticular Vicryl and esther. A sterile Aquacel bandage was applied. He was returned to the supine position, extubated. And transported to the recovery room in stable condition. Estimated blood loss was 50 mL. All needle and sponge counts were correct. Josué Bingham MD DR/ROVERTO /[id number]
[2018-11-06] MEDS: KETOROLAC TROMETHAMINE 30 MG/ML VIAL IV PRN ×2 (15:49→21:49)
[2018-11-06 15:51] VITALS: BP 127/60
--- NOTE | 2018-11-06 15:57 | NUR ---
SHAWN ESPARZA FOR ORDERS ON HIGH BLOOD SUGARS. NURSE STATES WILL MAKE HIS ROUNDS SOON NO ORDERS RECEIVED
[2018-11-06] MEDS ORDERED: CYCLOBENZAPRINE HCL 10 MG TAB PO PRN (16:15)
[2018-11-06] MEDS: CARVEDILOL 12.5 MG TAB PO SCH (16:51)
[2018-11-06] MEDS: ASPIRIN 325 MG TAB PO SCH (16:51)
[2018-11-06] MEDS: VASCEPA PO SCH (16:52)
[2018-11-06] MEDS: CEFAZOLIN SOD 1 GM/NS 50ML 50 ML IV SCH (16:52)
[2018-11-06] MEDS ORDERED: CELECOXIB 200 MG CAP PO SCH (17:00)
[2018-11-06] MEDS ORDERED: CELECOXIB 100 MG CAP PO SCH (17:00)
--- NOTE | 2018-11-06 17:21 | NUR ---
PT VOIDED POST SX 350 CC INTO URINAL
[2018-11-06] MEDS ORDERED: PROPOFOL IV EMULSION 10 MG/ML 20 ML VIAL ONE (18:09)
[2018-11-06] MEDS ORDERED: PHENYLEPHRINE HCL 1% 10 MG/ML VIAL ONE (18:09)
--- NOTE | 2018-11-06 18:09 | Consultation ---
DATE OF CONSULTATION: 11/06/2018 REASON FOR CONSULTATION: Medical management. HISTORY OF PRESENT ILLNESS: This is a 62-year-old white man, who presented to [facility] today with a diagnosis of advanced left hip osteoarthritis. The patient today underwent successful left total hip arthroplasty, it was performed by orthopedic surgeon namely Dr. Josué Bingham. The patient tolerated the surgery quite well. In fact, the patient states he has already ambulated today with therapy after the surgery. The patient states he still feels numb below his waist and he is yet to urinate. Ten days ago, the patient underwent left heart catheterization that did not require any percutaneous coronary intervention. The patient underwent intravascular high-definition ultrasound of the LAD coronary artery that revealed greater than 95% endothelial coverage of the stent struts. Thus, the gelatin dynamite packing operator namely Dr. Crispin Ly cleared the patient for cessation of dual anti-platelet therapy, namely aspirin and Effient. The patient underwent blood work on November 03, 2018, was found to have a hemoglobin 13.2 g/dL. The patient's BUN and creatinine on November 03, 2018 was 31 and 1.61 respectively. REVIEW OF SYSTEMS: GENERAL: Weight has been stable. No fever or chills. HEENT: No headaches. No vision changes. CARDIOVASCULAR/RESPIRATORY: No chest pain. No shortness of breath or cough. GI: No nausea, vomiting, diarrhea or constipation. : The patient states he has yet to urinate. He does not have a Ruelas catheter in place. NEUROMUSCULAR: No limb weakness or numbness. The patient states his left hip pain is well controlled. PAST MEDICAL HISTORY: 1. Left hip degenerative joint disease. 2. Coronary artery disease (LAD stent placed in June 2018). 3. History of aortic valve replacement (porcine) in 2014. 4. Stage 3 chronic kidney disease. 5. Type 2 diabetes mellitus. 6. Systolic/diastolic congestive heart failure. 7. Chronic bronchitis. 8. Chronic hepatitis C infection disease (fully treated). 9. Hypertriglyceridemia. 10. Hyperuricemia. 11. Mild obesity, BMI of 30. 12. Hypertriglyceridemia. PAST SURGICAL HISTORY: 1. Left heart catheterization on October 27, 2018, but no percutaneous coronary intervention was performed. 2. LAD coronary stent placement on July 07, 2018. 3. Aortic valve replacement (porcine) in January 2015. 4. Multiple left heart catheterization with appendectomy. 5. Tonsillectomy. 6. Cholecystectomy. 7. Bilateral carpal tunnel surgery. 8. Right shoulder surgery. SOCIAL HISTORY: This man is , lives with . He does not drink alcohol, but he does have a remote history of tobacco smoking. FAMILY HISTORY: Father of myocardial infarction. The patient's father was a diabetic and he of myocardial infarction. ALLERGIES: CODEINE. HOME MEDICATIONS: 1. Allopurinol 100 mg daily. 2. Amlodipine 5 mg daily. 3. Aspirin 81 mg daily. 4. Atorvastatin 80 mg at night. 5. Carvedilol 25 mg b.i.d. 6. Centrum Silver once daily. 7. Cyclobenzaprine 7.5 mg once daily for back spasms. 8. Valsartan 320 mg daily. 9. Furosemide 40 mg daily. 10. Pantoprazole 40 mg daily. 11. Prasugrel (Effient) 10 mg daily. 12. Tresiba insulin 40 units subcutaneous daily. 13. Vascepa 2000 mg b.i.d. 14. Victoza 1.8 mg subcutaneous daily. 15. Vitamin B12 500 mcg daily. 16. Vitamin D3 2000 units daily. 17. Zolpidem 10 mg at bedtime p.r.n. insomnia. PHYSICAL EXAMINATION: GENERAL: He is awake, alert, fully oriented and in no obvious distress. He is very pleasant and cooperative with exam. VITAL SIGNS: Blood pressure is 128/60, pulse is 88, respiratory rate 18, temperature 96.8, oxygen saturation 96%. Height 5 feet 11 inches, weight is 220 pounds, BMI 30. INTEGUMENT: Skin is warm and dry. No pallor, jaundice or diaphoresis. HEENT: Anicteric sclerae. Moist mucous membranes. NECK: Supple. CARDIOVASCULAR: Distant heart sounds. Regular rate and rhythm. LUNGS: No rales, no rhonchi, no wheezes. ABDOMEN: Benign. EXTREMITIES: No edema or deformity. The left hip surgical incision is currently dressed. NEUROLOGICAL: Intact. DIAGNOSES: 1. Status post left total hip arthroplasty. 2. Coronary artery disease (left anterior descending artery stent placement in June 2018). 3. History of aortic valve replacement, (porcine) in 2014. 4. Stage 3 chronic kidney disease. 5. Type 2 diabetes mellitus. 6. Systolic/diastolic congestive failure. PLAN: 1. Blood glucose control. 2. We will stop intravenous fluids after current bag is complete. 3. Follow renal function. 4. We will continue aspirin 325 mg twice a day as ordered by Orthopedics for deep venous thrombosis prophylaxis, but after two weeks we will restart Prasugrel in the form of Effient 10 mg daily and aspirin 81 mg also daily since he has history of recent coronary stent placement. 5. Congestive heart failure management with valsartan and carvedilol. 6. We will hold furosemide for now since patient appears to have slightly worsening renal function. 7. We will continue atorvastatin 80 mg every night for his dyslipidemia and coronary artery disease. 8. The patient to use incentive spirometer 10 times every hour while awake to help prevent atelectasis. 9. Mobilize with physical therapy. 10. Pain control. I spent 50 minutes in the care of this patient. I would like to thank Dr. Josué Bingham for this generous consult. MD CLEOPATRA Mosqueda/ROVERTO /[id number] MTDClint
[2018-11-06] MEDS ORDERED: MIDAZOLAM HCL 2 MG/2 ML VIAL ONE (18:15)
[2018-11-06] MEDS ORDERED: FENTANYL CITRATE/PF 100MCG/2 ML INJ ONE (18:15)
[2018-11-06 20:00] VITALS: BP 124/62
[2018-11-06] MEDS ORDERED: ATORVASTATIN 20 MG TAB PO SCH (21:00)
[2018-11-06] MEDS ORDERED: ZOLPIDEM TARTRATE 5 MG TAB PO PRN (21:00)
[2018-11-06] MEDS ORDERED: ATORVASTATIN 40 MG TAB PO SCH (21:00)
[2018-11-06] MEDS ORDERED: ZOLPIDEM TARTRATE 10 MG TAB PO SCH (21:00)
[2018-11-06 23:49] VITALS: BP 124/61
[2018-11-07] MEDS: CEFAZOLIN SOD 1 GM/NS 50ML 50 ML IV SCH ×2 (01:55→09:50)
[2018-11-07 04:00] VITALS: BP 129/60
[2018-11-07 05:24] LABS: BASOPHILS % 0.2 % (0.0-1.0); HEMATOCRIT 32.1 % (38.2-49.6); HEMOGLOBIN 11.3 g/dL (14.0-18.0); LYMPHOCYTES # (AUTO) 0.7 (1.0-3.2); LYMPHOCYTES % 3.8 % (18.0-39.1); MEAN CORPUSCULAR HEMOGLOBIN 31.4 pg (28-32); MEAN CORPUSCULAR HGB CONC 35.2 g/dL (31-35); MEAN CORPUSCULAR VOLUME 89.2 fL (81-99); MONOCYTES # (AUTO) 1.1 (0.2-0.8); MONOCYTES % 5.9 % (4.4-11.3); NEUTROPHILS # (AUTO) 17.2 (2.1-6.9); NEUTROPHILS % 89.5 % (38.7-80.0); PLATELET COUNT 209 x10e3/uL (140-360); RED CELL DISTRIBUTION WIDTH 12.7 % (11.7-14.4)
[2018-11-07] MEDS: ACETAMINOPHEN 1000 MG/100 ML IV SCH (05:29)
[2018-11-07 05:49] LABS: ALBUMIN/GLOBULIN RATIO 1.2 (0.8-2.0); ANION GAP 13.7 mmol/L (8-16); CALCIUM 8.7 mg/dL (8.4-10.2); CREATININE, SERUM 1.69 mg/dL (0.72-1.25); POTASSIUM 4.7 mmol/L (3.5-5.1)
--- NOTE | 2018-11-07 06:59 | NUR ---
REPORT GIVEN TO ONCOMING NURSE.WALKING ROUNDS MADE.PT RESTING IN BED WITH NO S/S OF DISTRESS.
[2018-11-07] MEDS: VASCEPA PO SCH (07:21)
[2018-11-07] MEDS ORDERED: PANTOPRAZOLE SOD 40 MG TABEC PO SCH (07:30)
--- NOTE | 2018-11-07 07:35 | NUR ---
PT ADMINISTERED 50 UNIT OF TRESIBA AT THIS TIME FOR A BS OF 248
[2018-11-07 07:39] VITALS: BP 133/59
[2018-11-07 07:56] VITALS: BP 133/59
[2018-11-07] MEDS: ASPIRIN 325 MG TAB PO SCH (07:56)
[2018-11-07] MEDS: CARVEDILOL 12.5 MG TAB PO SCH (07:56)
--- NOTE | 2018-11-07 08:40 | NUR ---
DR MAYES OFFICE PREARRANGED FOLLOWING DISCHARGE PLAN OF: RETURNING HOME [id number] [place] [address] PHONE IS [phone] HOME HEALTH WITH HOME CARE PROVIDERS CONFIRMED WITH [facility] [phone] DME 3 IN ONE COMMODE,CPM AND ROLLING WALKER WITH WHEELS. PROVIDED BY [employer] [phone] FOLLOW UP TO BE DONE IN DR DENSON'S OFFICE FOR FURTHER QUESTIONS.
[2018-11-07] MEDS: KETOROLAC TROMETHAMINE 30 MG/ML VIAL IV PRN (08:55)
[2018-11-07] MEDS ORDERED: FUROSEMIDE 40 MG TAB PO SCH (09:00)
[2018-11-07] MEDS ORDERED: AMLODIPINE BESYLATE 5 MG TAB PO SCH ×2 (09:00→21:00)
[2018-11-07] MEDS ORDERED: MULTIVITAMINS/MINERALS TAB PO SCH (09:00)
[2018-11-07] MEDS ORDERED: ALLOPURINOL 100 MG TAB PO SCH (09:00)
[2018-11-07] MEDS ORDERED: (Liraglutide (Victoza 2-Pak) 1.8 MG) SC SCH (09:00)
[2018-11-07] MEDS ORDERED: CYANOCOBALAMIN 1,000 MCG TAB PO SCH (09:00)
[2018-11-07] MEDS ORDERED: TRESIBA 50 UNIT SC SCH (09:00)
[2018-11-07] MEDS ORDERED: CYANOCOBALAMIN 500 MCG PO SCH (09:00)
[2018-11-07] MEDS ORDERED: VALSARTAN 160 MG TAB PO SCH (09:00)
[2018-11-07] MEDS ORDERED: FUROSEMIDE 20 MG TAB PO SCH (09:00)
[2018-11-07] MEDS ORDERED: NON-FORMULARY MEDICATION (Mu-Vits-Min Th/Lycopene/Lutein (Centrum Silver Tablet) 1 TAB) PO SCH (09:00)
[2018-11-07] MEDS ORDERED: CHOLECALCIFEROL 1,000 UNIT TAB PO SCH (09:00)
[2018-11-07] MEDS ORDERED: ONDANSETRON HCL 4 MG ORAL DISINTEGRATING TAB PO PRN (10:45)
--- NOTE | 2018-11-07 11:23 | NUR ---
DISCHARGE INSTRUCTIONS GIVEN . PT VERBALIZED UNDERSTANDING IV DC PRESSURE DRESSING APPLIED AND TAPED PT IS OFF UNIT TO HOME AT THIS TIME
[2018-11-07] MEDS ORDERED: ACETAMINOPHEN 1000 MG/100 ML IV PRN (12:00)
== END 2018-11-07 11:15 | disposition home health service (06) | DRG 470 ==
LOC: OR 08:48 → RAD HOLD 12:30 → PACU V 12:32 → MED/SURG 13:44
PROVIDERS: ADMIT Specialist; ATTEND Specialist
PROC: 0SRB06A Replacement of Left Hip Joint with Oxidized Zirconium on Polyethylene Synthetic Substitute, Uncemented, Open Approach (ICD-10-PCS; principal; 2018-11-06 11:00)
DX: M16.12 Unilateral primary osteoarthritis, left hip (principal); I13.0 Hypertensive heart and chronic kidney disease with heart failure and stage 1 through stage 4 chronic kidney disease, or unspecified chronic kidney disease; I50.42 Chronic combined systolic (congestive) and diastolic (congestive) heart failure; I25.10 Atherosclerotic heart disease of native coronary artery without angina pectoris; Z95.5 Presence of coronary angioplasty implant and graft; N18.3 Chronic kidney disease, stage 3 (moderate); Z95.3 Presence of xenogenic heart valve; D72.829 Elevated white blood cell count, unspecified
CPT/HCPCS: 36415; 71046; 72170; 80048; 80053; 82948; 85025; 85610; 85730; 86850; 86900; 86920; 93005; C1713; J0171; J0690; J1100; J1885; J2250; J2370; J2795; J3010; J3370; J7030; J7040

== ENCOUNTER → 2019-08-28 | Day surgery (SDC) | payer OTHER ==
[~2019-08-28] VITALS: Ht 180.3 cm; Wt 106.6 kg
[2019-08-28] VITALS (11 sets, daily range): BP systolic 93–124; BP diastolic 49–74
[~2019-08-28] MED LIST changes: +ASPIRIN 325 MG TAB ONE; +BIVALRIUDIN 250 MG/VIAL VIAL IV ONE; +FENTANYL CITRATE/PF 100MCG/2 ML INJ ONE; +HEPARIN SOD/SOD CHLORIDE 2,000 ML ONE; +IOPAMIDOL 370 MG/ML 200 ML INFUS..BTL INJ ONE; +LIDOCAINE HCL 2% LOCAL 20 ML VIAL ONE; +MIDAZOLAM HCL 2 MG/2 ML VIAL ONE; +PRASUGREL 10 MG TAB ONE; -ROPIVACAINE 246.25 MG, EPINEPHRINE HCL 1:1000 1ML 0.5 MG, CLONIDINE HCL 0.08 MG, KETORO... INJ ONE; +SODIUM CHLORIDE 0.9% 1000ML 1,000 ML ONE; +SODIUM CHLORIDE 0.9% 50ML 50 ML ONE
[2019-08-28 05:52] LABS: BASOPHILS # (AUTO) 0.1 (0.0-0.1); BASOPHILS % 0.6 % (0.0-1.0); EOSINOPHILS # (AUTO) 0.3 (0.0-0.4); EOSINOPHILS % 3.3 % (0.0-6.0); HEMATOCRIT 38.4 % (38.2-49.6); HEMOGLOBIN 13.4 g/dL (14.0-18.0); LYMPHOCYTES # (AUTO) 1.8 (1.0-3.2); LYMPHOCYTES % 20.8 % (18.0-39.1); MEAN CORPUSCULAR HGB CONC 34.9 g/dL (31-35); MEAN CORPUSCULAR VOLUME 88.9 fL (81-99); MONOCYTES # (AUTO) 0.8 (0.2-0.8); MONOCYTES % 9.4 % (4.4-11.3); NEUTROPHILS # (AUTO) 5.6 (2.1-6.9); NEUTROPHILS % 65.4 % (38.7-80.0); PLATELET COUNT 218 x10e3/uL (140-360); RED BLOOD COUNT 4.32 x10e6/uL (4.3-5.7); RED CELL DISTRIBUTION WIDTH 12.9 % (11.7-14.4)
--- NOTE | 2019-08-28 06:00 | Emergency Department Note ---
History of Present Illnes History of Present Illness Chief Complaint: Chest Pain History of Present Illness This is a 63 year old male PRESENTS TO ED WITH LEFT SIDED CHEST PAIN X1 HR; RESP ARE EVEN AND UNLABORED, O2 SAT RA 98%; PT IS SCHEDULED FOR CARDIAC CATHETERIZATION THIS TUESDAY AT THIS FACILITY; HAD ABNORMAL STRESS TEST 2 WEEKS AGO. Historian: Patient Arrival Mode: Car Onset (how long ago): hour(s) (1) Location: LEFT Quality: PAIN Radiation: Reports non-radiation Severity: moderate Onset quality: sudden Duration (how long): hour(s) (1) Timing of current episode: constant Progression: unchanged Chronicity: recurrent Context: Denies recent illness, Denies recent surgery Relieving factors: none Exacerbating factors: none Associated symptoms: Reports denies other symptoms Treatments prior to arrival: other (HOME MEDS INCLUDING ASPIRIN AND EFFIENT) Past Medical/Family History Physician Review I have reviewed the patient's past medical and family history. Any updates have been documented here. Past Medical History Recent Fever: No Clinical Suspicion of Infectio: No New/Unexplained Change in Ment: No Past Medical History: Hypertension, Diabetes, CAD, GERD Other Medical History: RAPID HEART RATE Past Surgical History: Cholecysctectomy, Appendectomy Other Surgery: CARPEL TUNNEL HEART VALVE TONSILLECTOMY Social History Smoking Cessation: Former smoker Alcohol Use: None Any Illegal Drug Use: No Family History Family history of heart diseas: Yes Other family history HTN, DM, CAD Other Last Tetanus: UNK Review of Systems Review of Systems Constitutional: Reports no symptoms EENTM: Reports no symptoms Cardiovascular: Reports as per HPI Respiratory: Reports no symptoms Gastrointestinal: Reports no symptoms Genitourinary: Reports no symptoms Musculoskeletal: Reports no symptoms Integumentary: Reports no symptoms Neurological: Reports no symptoms Psychological: Reports no symptoms Endocrine: Reports no symptoms Hematological/Lymphatic: Reports no symptoms Physical Exam Related Data Allergies: Coded Allergies: No Known Allergies (Unverified , 01/23/15) Triage Vital Signs Vital Signs Date Time Temp Pulse Resp B/P (MAP) Pulse Ox O2 Delivery O2 Flow Rate FiO2 08/28/19 05:39 98.1 87 18 134/69 98 Room Air Vital signs reviewed: Yes Physical Exam CONSTITUTIONAL Constitutional: Present well-developed, Present well-nourished HENT HENT: Present normocephalic, Present atraumatic, Present oropharynx clear/moist, Present nose normal HENT L/R: Present left ext ear normal, Present right ext ear normal EYES Eyes: Reports PERRL, Reports conjunctivae normal NECK Neck: Present ROM normal PULMONARY Pulmonary: Present effort normal, Present breath sounds normal CARDIOVASCULAR Cardiovascular: Present regular rhythm, Present heart sounds normal, Present capillary refill normal, Present normal rate GASTROINTESTINAL Abdominal: Present soft, Present nontender, Present bowel sounds normal GENITOURINARY Genitourinary: Present exam deferred SKIN Skin: Present warm, Present dry MUSCULOSKELETAL Musculoskeletal: Present ROM normal NEUROLOGICAL Neurological: Present alert, Present oriented x 3, Present no gross motor or sensory deficits PSYCHOLOGICAL Psychological: Present mood/affect normal, Present judgement normal Results Laboratory Laboratory Laboratory Tests Test 08/28/19 05:38 Lab results reviewed: Yes Laboratory comments Laboratory Tests Test 08/28/19 05:38 White Blood Count 8.59 x10e3/uL (4.8-10.8) Red Blood Count 4.32 x10e6/uL (4.3-5.7) Hemoglobin 13.4 g/dL (14.0-18.0) Hematocrit 38.4 % (38.2-49.6) Mean Corpuscular Volume 88.9 fL (81-99) Mean Corpuscular Hemoglobin 31.0 pg (28-32) Mean Corpuscular Hemoglobin Concent 34.9 g/dL (31-35) Red Cell Distribution Width 12.9 % (11.7-14.4) Platelet Count 218 x10e3/uL (140-360) Neutrophils (%) (Auto) 65.4 % (38.7-80.0) Lymphocytes (%) (Auto) 20.8 % (18.0-39.1) Monocytes (%) (Auto) 9.4 % (4.4-11.3) Eosinophils (%) (Auto) 3.3 % (0.0-6.0) Basophils (%) (Auto) 0.6 % (0.0-1.0) Neutrophils # (Auto) 5.6 (2.1-6.9) Lymphocytes # (Auto) 1.8 (1.0-3.2) Monocytes # (Auto) 0.8 (0.2-0.8) Eosinophils # (Auto) 0.3 (0.0-0.4) Basophils # (Auto) 0.1 (0.0-0.1) Absolute Immature Granulocyte (auto 0.04 x10e3/uL (0-0.1) Prothrombin Time 12.0 seconds (11.9-14.5) Prothromb Time International Ratio 0.85 Activated Partial Thromboplast Time 26.6 seconds (23.8-35.5) Sodium Level 138 mmol/L (136-145) Potassium Level 4.5 mmol/L (3.5-5.1) Chloride Level 104 mmol/L (98-107) Carbon Dioxide Level 25 mmol/L (22-29) Anion Gap 13.5 mmol/L (8-16) Blood Urea Nitrogen 27 mg/dL (7-26) Creatinine 1.40 mg/dL (0.72-1.25) Estimat Glomerular Filtration Rate 51 ML/MIN (60-) BUN/Creatinine Ratio 19 (6-25) Glucose Level 145 mg/dL (74-118) Calcium Level 9.2 mg/dL (8.4-10.2) Total Bilirubin 0.4 mg/dL (0.2-1.2) Aspartate Amino Transf (AST/SGOT) 19 IU/L (5-34) Alanine Aminotransferase (ALT/SGPT) 20 IU/L (0-55) Alkaline Phosphatase 81 IU/L (40-150) Creatine Kinase 130 IU/L (30-200) Creatine Kinase MB 1.70 ng/mL (0-5.0) Troponin I 0.047 ng/mL (0-0.300) Total Protein 6.8 g/dL (6.5-8.1) Albumin 3.7 g/dL (3.5-5.0) Globulin 3.1 g/dL (2.3-3.5) Albumin/Globulin Ratio 1.2 (0.8-2.0) Imaging Imaging results reviewed: Yes Procedures 12 Lead ECG Interpretation ECG Interpretation : ECG: ECG 1 Ground Water Contractor: Interpreted by ED physician Date: Aug 28, 2019 Time: 05:33 Prior ECG tracings: reviewed Rhythm: sinus rhythm Rate: normal BPM: 84 Conduction: 1st degree ST segments normal: No (NONSPECIFIC CHANGES) T waves normal: Yes Clinical Impression: abnormal ECG Assessment & Plan Medical Decision Making MDM PT WITH CHEST PAIN WITH RECENT ABNORMAL STRESS TEST AND SCHEDULED FOR HEART CATH THIS WEEK CBC, CMP, PT/PTT, EKG, CXR, CARDIAC ENZYMES ORDERED TO EVAL FOR MYOCARDIAL INFARCTION,ELECTROLYTE ABNORMALITY, COAGULOPATHY, INTRATHORACIC ABNORMALITY I SPOKE WITH DR CAREN CUMMINGS'S LEDGER CLERK AND HE IS GOING TO TAKE PT TO [facility] THIS MORNING AROUND 8 AM Assessment & Plan Final Impression: (1) Chest pain Depart Disposition: ADMITTED (TO [facility]) Last Vital Signs Date Time Temp Pulse Resp B/P (MAP) Pulse Ox O2 Delivery O2 Flow Rate FiO2 08/28/19 05:39 98.1 87 18 134/69 98 Room Air Home Meds Reported Medications Prasugrel Hcl (EFFIENT) 10 Mg Tablet, 10 MG PO DAILY, #30 TAB 10/26/18 Valsartan (DIOVAN) 160 Mg Tab, 320 MG PO DAILY, #60 TAB 10/26/18 Cyclobenzaprine Hcl (CYCLOBENZAPRINE HCL) 10 Mg Tablet, 7.5 MG PO TID PRN for MUSCLE SPASMS, TAB 07/07/18 Cyanocobalamin (Vitamin B-12) (VITAMIN B-12) 500 Mcg Tablet, 500 MCG PO DAILY 07/06/18 [Tresiba ] 200 UNITS No Conflict Check, 50 UNITS SQ DAILY 10/22/17 Cholecalciferol (Vitamin D3) (VITAMIN D) 1,000 Unit Tablet, 2000 UNIT PO DAILY, #30 TAB 10/22/17 Liraglutide (VICTOZA 2-MAINE) 0.6 Mg/0.1 Ml Pen.injctr, 1.8 MG SQ DAILY 10/22/17 Furosemide (FUROSEMIDE) 20 Mg Tablet, 40 MG PO DAILY 10/22/17 Amlodipine Besylate (AMLODIPINE BESYLATE) 5 Mg Tablet, 5 MG PO DAILY, #30 TAB 10/22/17 Allopurinol (ALLOPURINOL) 100 Mg Tablet, 100 MG PO DAILY, #30 TAB 09/18/17 Carvedilol (COREG) 12.5 Mg Tab, 25 MG PO BID 05/01/15 [Vascepa] 1 GM No Conflict Check, 2 CAP PO BID 05/01/15 Atorvastatin Calcium (ATORVASTATIN CALCIUM) 20 Mg Tablet, 80 MG PO HS, TAB 01/23/15 Pantoprazole Sodium* (PROTONIX) 40 Mg Tablet.dr, 40 MG PO DAILY 11/15/13 Mu-Vits-Min Th/Lycopene/Lutein (CENTRUM SILVER TABLET) 1 Each Tablet, 1 TAB PO DAILY 06/02/13 Zolpidem Tartrate (AMBIEN) 10 Mg Tablet, 10 MG PO BEDTIME 06/02/13 Aspirin (ASPIRIN EC) 81 Mg Tablet., 1 TAB PO DAILY 12/06/11 AYANNA LONG MD Aug 28, 2019 06:00
[2019-08-28 06:31] LABS: ALBUMIN 3.7 g/dL (3.5-5.0); ALBUMIN/GLOBULIN RATIO 1.2 (0.8-2.0); ANION GAP 13.5 mmol/L (8-16); CALCIUM 9.2 mg/dL (8.4-10.2); CREATININE, SERUM 1.4 mg/dL (0.72-1.25); POTASSIUM 4.5 mmol/L (3.5-5.1)
[2019-08-28 06:37] LABS: INR 0.85
[2019-08-28 06:38] LABS: PARTIAL THROMBOPLASTIN TIME 26.6 seconds (23.8-35.5)
[2019-08-28 06:40] LABS: CREATINE KINASE MB 1.7 ng/mL (0-5.0)
--- NOTE | 2019-08-28 07:29 | Diagnostic Imaging Report ---
EXAMINATION: CHEST SINGLE (PORTABLE) INDICATION: CHEST PAIN COMPARISON: Chest radiograph 11-03-2018. FINDINGS: TUBES and LINES: None. LUNGS: Lungs are well inflated. There is no evidence of pneumonia or pulmonary edema. PLEURA: No pleural effusion or pneumothorax. HEART AND MEDIASTINUM: The cardiomediastinal silhouette is unremarkable. There are atherosclerotic calcifications within the aorta. BONES AND SOFT TISSUES: No acute osseous abnormality. Status post median sternotomy. Chronic deformity of the distal right clavicle. UPPER ABDOMEN: No free air under the diaphragm. IMPRESSION: No acute thoracic abnormality. Signed by: Dr. Kiran Michel MD on 08/28/2019 7:26 AM
--- NOTE | 2019-08-28 10:13 | Operative Report ---
DATE OF PROCEDURE: 08/28/2019 SURGEON: Crispin Ly MD CARDIAC PIT AND AUXILIARIES SUPERVISOR PROCEDURE NOTE. INDICATIONS: Znt-[id number] elevation myocardial infarction. COMPLICATIONS: None. BLOOD LOSS: Minimal. RECOMMENDATIONS: Dual antiplatelet therapy for life. PROCEDURES PERFORMED: 1. Ultrasound-guided access in the right radial artery with sheath placement. 2. Conscious sedation, 65 minutes. 3. Left heart catheterization, selective coronary angiography. 4. PTCA and stent placement in the mid left anterior descending artery. 5. Deployment of right wrist TR band. DESCRIPTION OF PROCEDURE: Access obtained in the right radial artery using ultrasound guidance. A 6-Urdu sheath was placed. Coronary angiography demonstrated patent left main. The left anterior descending artery proximal stent was widely patent, distal to the stent in the mid left anterior descending artery, 80% stenosis with RUSSELL-2 flow. Circumflex, mild disease, mid right coronary artery 50% stenosis. A decision was made to intervene on the mid left anterior descending artery. The patient received intravenous Angiomax, oral prasugrel, and aspirin for anticoagulation. The left main was cannulated using an XB 4.0, 6-Urdu guiding catheter. A GuideLiner was used for support. The [employer] wire was advanced across the lesion for support. Primary stent 3.0 x 12 mm Synergy stent deployed to 16 atmospheres, excellent end result, less than 10% residual stenosis, RUSSELL-3 flow. No complications. Wire and guide sheath were removed. TR band applied. The patient discharged home same day. Crispin Ly MD KSB/MODL /[id number]
--- NOTE | 2019-08-28 13:30 | NUR ---
1330 pm RECEIVING NOTE [employer]OR [employer]............................................................... Bedside report received from DANIELLE Salgado. Identifierx2. Alert oriented and appropriate, PERRLA, respirations even and unlabored to room air. Pulses x4 extremities equal and strong. Pedal pulses PT/DP X4 and marked. Cap fill brisk < 3 sec. Rt Tr band off per Damian Eric No gross issues pain,pallor pressure or dysrhythmia.Refuses Tr band reminder board states Skin warm and dry integrity appears D/I. IV 20g to left arm, presents healthy w/o s/s of infiltration or complaint. Abdomen soft and supple. pt offered toileting, denies need to urinate or defecate. No personal affects with patient. Family at bedside. Pt and family verbalizes understanding of POC. Currently w/o complaint of pain or need. ds/rn
--- NOTE | 2019-08-28 15:00 | NUR ---
1500 pt requesting to dc home now text Dr Ly confirmed Mar list and ok to dc now NO gross issues pain,pallor pressure or dysrhythmia, ds/rn
--- NOTE | 2019-08-28 15:05 | NUR ---
1505pm [employer] OPERATOR RECOVERY DISCHARGE NURSING NOTE Pt meets DC criteria. Rt TR band site assessed for s/s of complication and presence of hematoma. Skin warm, dry, no discolor, and pulses present. IV removed from left hand. Distal tip appears intact. VS WNL. Pt denies pain, sob, or need at this time. Family at bedside. Review of discharge paperwork and follow up instructions. verbalized understanding. Pt to wheelchair and transported to front of hospital. Transferred to private vehicle under own strength w/o incident with DC paperwork in hand. - brianne/rn
--- OUTSIDE RECORDS SUMMARY | 2019-09-07 14:20 | XMS REPORT | Continuity of Care Document ---
Author Author [facility] t Organization [facility] Address [address] [place] [address] Phone Unavailable Care Team Providers Care Direct Marketing Representative Name Role Phone YVONNE ESPARZA MD PCP Theron LONG Attphys Unavailable DONNIE DENSON Attphys Unavailable Aubrie SOTO Attphys Unavailable DONNIE DENSON Admchana Unavailable Payers Payer Name Policy Type Policy Number Effective Date Expiration Date S eliza [facility] [id number] 2017 00:00:00 [facility] Problems Condition Name Condition Details Condition Category Status Onset Date Resolution Date Last Treatment Date Treating Clinician Comments Source CHF (congestive heart failure) CHF (congestive heart failure) Probl em Active 2015-01-23 00:00:00 [facility] Chest pain Chest pain Problem Active 2013-11-15 00:00:00 [facility] Bronchitis Bronchitis Problem Active [facility] Paroxysmal supraventricular tachycardia PSVT (paroxysm al supraventricular tachycardia) Problem Active [facility] Allergies, Adverse Reactions, Alerts This patient has no known allergies or adverse reactions. Medications Ordered Medication Name Filled Medication Name Start Date Stop Da te Current Medication? Ordering Clinician Indication Dosage Frequency Signature (SIG) Comments Components Source Allopurinol 100 Mg Tablet Allopurinol 100 Mg Tablet Yes 100 Daily [facility] Amlodipine Besylate 5 Mg Tablet Amlodipine Besylate 5 Mg Tablet Yes 5 Daily [facility] Aspirin (Aspirin Ec) 81 Mg Tablet. Aspirin (Aspirin Ec) 81 Mg Tab let. Yes 1 Daily [facility] Atorvastatin Calcium 20 Mg Tablet Atorvastatin Calcium 20 Mg Tablet Yes 80 Bedtime [facility] Carvedilol (Coreg) 12.5 Mg Tab Carvedilol (Coreg) 12.5 Mg Tab Yes 25 Twice A Day [facility] Cholecalciferol (Vitamin D3) (Vitamin D) 1,000 Unit Ta blet Cholecalciferol (Vitamin D3) (Vitamin D) 1,000 Unit Tablet Yes 2000 Daily [facility] Cyanocobalamin (Vitamin B-12) (Vitamin B-12) 500 Mcg T ablet Cyanocobalamin (Vitamin B-12) (Vitamin B-12) 500 Mcg Tablet Yes 500 Daily [facility] Cyclobenzaprine Hcl 10 Mg Tablet Cyclobenzaprine Hcl 10 Mg Tablet Yes 7.5 Three Times A Day as needed for Muscle Spasms [facility] Furosemide 20 Mg Tablet Furosemide 20 Mg Tablet Yes 40 Daily [facility] Liraglutide (Victoza 2-Demetri) 0.6 Mg/0.1 Ml Pen.injctr L iraglutide (Victoza 2-Demetri) 0.6 Mg/0.1 Ml Pen.injctr Yes 1.8 Daily [facility] Mu-Vits-Min Th/Lycopene/Lutein (Centrum Silver Tablet) 1 Each Tablet Mu-Vits-Min Th/Lycopene/Lutein (Centrum Silver Tablet) 1 Each Tablet Yes 1 Daily [facility] Pantoprazole Sodium (Protonix) 40 Mg Tablet. Pantopr azole Sodium (Protonix) 40 Mg Tablet. Yes 40 Daily [facility] Prasugrel Hcl (Effient) 10 Mg Tablet Prasugrel Hcl (Effient) 10 Mg Tablet Yes 10 Daily [facility] Tresiba 200 Units Tresiba 200 Units Yes 50 Da julianne [facility] Valsartan (Diovan) 160 Mg Tab Valsartan (Diovan) 160 Mg Tab Yes 320 Daily [facility] Vascepa 1 Gm Vascepa 1 Gm Yes 2 Twice A Day [facility] Zolpidem Tartrate (Ambien) 10 Mg Tablet Zolpidem Tartrate (A mbien) 10 Mg Tablet Yes 10 Bedtime [facility] Metformin Hcl 500 Mg Tablet, 500 Mg Oral Metformin Hcl 500 Mg Tablet, 500 Mg Oral 2018-10-26 00:00:00 No 500 Twice A Day [facility] Valsartan/Hydrochlorothiazide (Diovan Hc t 320-25 Mg Tablet) 1 Each Tablet, 1 Tab Oral Valsartan/Hydrochlorothiazide (Diovan Hc t 320-25 Mg Tablet) 1 Each Tablet, 1 Tab Oral 2018-10-26 00:00:00 No 1 Daily [facility] Irbesartan 150 Mg Tablet, 300 Mg Oral Irbesartan 150 Mg Tablet, 300 Mg Oral 2018-07-06 00:00:00 No 300 Daily [facility] Liraglutide (Victoza 3-Demetri) 0.6 Mg/0.1 Ml Pen.injctr, Liraglutide (Victoza 3- Demetri) 0.6 Mg/0.1 Ml Pen.injctr, 2018-07-06 00:00:00 No Daily [facility] Mupirocin 22 Gm Oint...g., 2 % Topically Mupirocin 22 Gm Oint...g., 2 % Topically 2018-07-06 00:00:00 No 2 Twice A Day [facility] Sulfamethoxazole/Trimethoprim (Bactrim Ds Tablet) 1 Ea ch Tablet, 1 Tab Oral Sulfamethoxazole/Trimethoprim (Bactrim Ds Tablet) 1 Each Tablet, 1 Tab Oral 2018-07-06 00:00:00 No 1 Twice A Day [facility] Vit B12/Lmefolate Ca/Vit B6/B2 (Cerefolin Tablet) 1 Ea ch Tablet, 1 Tab Oral Vit B12/Lmefolate Ca/Vit B6/B2 (Cerefolin Tablet) 1 Each Tablet, 1 Tab Oral 2018-07-06 00:00:00 No 1 Daily [facility] Amlodipine , 5 Mg Oral Amlodipine , 5 Mg Oral 2017-10-22 00:00:00 No 5 Daily [facility] Furosemide , 20 Mg Oral Furosemide , 20 Mg Oral 2017-10-22 00:00 :00 No 20 Daily [facility] Reglan , 10 Mg Oral Reglan , 10 Mg Oral 2017-10-22 00:00:00 No 10 Every 6 Hours [facility] Valsartan (Diovan) 320 Mg Tablet, 320 Mg Oral Valsarta n (Diovan) 320 Mg Tablet, 320 Mg Oral 2017-10-22 00:00:00 No 320 Daily [facility] Levemir , 30 Units Sub-Q Levemir , 30 Units Sub-Q 2017-09-18 00: 00:00 No 30 Twice A Day [facility] Liraglutide (Victoza 2-Demetri) 0.6 Mg/0.1 Ml Pen.injctr, 1.8 Mg Subcutaneously Liraglutide (Victoza 2-Demetri) 0.6 Mg/0.1 Ml Pen.injctr, 1.8 Mg Subcutaneously 2017-09-18 00:00:00 No 1.8 Daily [facility] Metformin Hcl 500 Mg Tablet, 1000 Mg Oral Metformin Hc l 500 Mg Tablet, 1000 Mg Oral 2017-09-18 00:00:00 No 1000 Twice A Day [facility] Vit D , Oral Vit D , Oral 2017-09-18 00:00:00 No Daily [facility] Furosemide 40 Mg Tablet, 40 Mg Oral Furosemide 40 Mg Tablet, 40 Mg Oral 2016-06-05 00:00:00 No 40 Daily [facility] Insulin Detemir (Levemir) 100 Unit/1 Ml Vial, 24 Units Sub-Q Insulin Detemir (Levemir) 100 Unit/1 Ml Vial, 24 Units Sub-Q 2016-06-05 00:00:00 No 24 Twice A Day [facility] Metoprolol Tartrate 50 Mg Tablet, 50 Mg Oral Metoprolo l Tartrate 50 Mg Tablet, 50 Mg Oral 2015-05-01 00:00:00 No 50 Daily [facility] Hydrochlorothiazide 25 Mg Tablet, 25 Mg Oral Hydrochlo rothiazide 25 Mg Tablet, 25 Mg Oral 2015-01-23 00:00:00 No 25 Twice A Day [facility] Metoprolol Tartrate 50 Mg Tablet, 50 Mg Oral Metoprolo l Tartrate 50 Mg Tablet, 50 Mg Oral 2015-01-23 00:00:00 No 50 Twice A Day [facility] Lawtons-3 Fatty Acids/Fish Oil (Fish Oil 1 ,000 Mg Capsule) 1 Each Capsule, Mg Oral Lawtons-3 Fatty Acids/Fish Oil (Fish Oil 1 ,000 Mg Capsule) 1 Each Capsule, Mg Oral 2015-01-23 00:00:00 No Daily [facility] Omeprazole 20 Mg Capsule., 20 Mg Oral Omeprazole 20 Mg Cap urth., 20 Mg Oral 2015-01-23 00:00:00 No 20 Daily [facility] Peginterferon Cristo-2A (Pegasys) 180 Mcg/0.5 Ml Disp.sy rin, 180 Mcg Peginterferon Cristo-2A (Pegasys) 180 Mcg/0.5 Ml Disp.syrin, 180 Mcg 2015-01-23 00: 00:00 No 180 Weekly [facility] Ribavirin (Ribasphere) 600 Mg Tablet, 600 Mg Oral Riba virin (Ribasphere) 600 Mg Tablet, 600 Mg Oral 2015-01-23 00:00:00 No 600 Twic e A Day [facility] Sovaldi , 400 Sovaldi , 400 2015-01-23 00:00:00 No 400 Daily [facility] Vascepa , 1 Gm Oral Vascepa , 1 Gm Oral 2015-01-23 00:00:00 No 1 Twice A Day [facility] Vitamin E Mixed (Vitamin E) 400 Unit Capsule, 400 Mg O ral Vitamin E Mixed (Vitamin E) 400 Unit Capsule, 400 Mg Oral 2015-01-23 00:00:00 No 400 Daily [facility] Pravastatin Sodium 20 Mg Tablet, 40 Mg Oral Pravastati n Sodium 20 Mg Tablet, 40 Mg Oral 2013-11-15 00:00:00 No 40 Daily [facility] Esomeprazole Magnesium (Nexium) 20 Mg Capsule., 40 M g Oral Esomeprazole Magnesium (Nexium) 20 Mg Capsule., 40 Mg Oral 2013-06-02 00:00:00 No 40 Daily [facility] Ibuprofen/Diphenhydramine (Advil Pm Caplet) 1 Each Tab let, 1 Tab Oral Ibuprofen/Diphenhydramine (Advil Pm Caplet) 1 Each Tablet, 1 Tab Oral 2013-06-02 00:00:00 No 1 Daily [facility] Procedures Procedure Date / Time Performed Performing Clinician [facility] e Total replacement of left hip joint 2018-11-06 00:00:00 DONNIE DENSON [facility] X-ray of chest, two views 2018-11-03 00:00:00 NAVARRO COOPER [facility] US GUIDE VASCULAR ACCESS 2018-07-07 00:00:00 CARENJESSICA [facility] PRQ CARD STENT W/ANGIO 1 VSL 2018-07-07 00:00:00 JESSICA FABIAN [facility] CORONARY ARTERY ANGIO S&I 2018-07-07 [facility]:00[facility] Encounters Start Date/Time End Date/Time Encounter Type Admission Type [facility] Care Department Encounter ID Source 2018-11-06 12:30:00 2018-11-07 11:15:00 Discharged Inpatient 3 DONNIE DENSON [facility] [id number] [facility] 2018-10-27 09:12:00 2018-10-27 09:12:00 Registered Surgical Day Care [facility] [id number] [facility] 2018-07-07 10:44:00 2018-07-07 10:44:00 Registered Surgical Day Care [facility] [id number] [facility] 2017-10-22 10:41:00 2017-10-25 16:18:00 Discharged Inpatient (obs) 1 VALERIA SOTO [facility] [id number] [facility] 2017-09-18 11:24:00 2017-09-18 12:14:00 Departed Emergency Room [facility] [id number] [facility] Results Test Description Test Time Test Comments Results Result Comments Source CHEST SINGLE (PORTABLE) 2019-08-28 07:24:00 [facility] [address] [place] [address] Patient Name: SAMMY VALERA MR #: [id number] : 1955 Age/Sex: 63/M Req #: [id number] Adm Physician: Ordered by: AYANNA LONG MD Report #: [id number] Location: ER Room/Bed: Procedure: [id number] DX/CHEST SINGLE (PORTABLE) Exam Date: 08/28/19 Exam Time: 644 REPORT STATUS: Signed EXAMINATION: CHEST SINGLE (PORTABLE) INDICATION: CHEST PAIN COMPARISON: Chest radiograph 11-03-2018. FINDINGS: TUBES and LINES: None. LUNGS: Lungs are well inflated. There is no evidence of pneumonia or pulmonary edema. PLEURA: No pleural effusion or pneumothorax. HEART AND MEDIASTINUM: The cardiomediastinal silhouette is unremarkable. There are atherosclerotic calcifications within the aorta. BONES AND SOFT TISSUES: No acute osseous abnormality. Status post median sternotomy. Chronic deformity of the distal right clavicle. UPPER ABDOMEN: No free air under the diaphragm. IMPRESSION: No acute thoracic abnormality. Signed by: Dr. Lynda Carmona MD on 08/28/2019 7:26 AM Dictated By: LYNDA CARMONA MD 5 Transcribed By: SANDRO on 08/28/19725 COPY TO: AYANNA LONG MD Sodium Level 2018-11-07 05:50:00 Test Item Sodium Level (test code = 2951-2) 135 136-145 L [facility] [id number] 05:50:00* Test Item Value Reference Range Interpretation Comments Potassium Level (test code = 2823-3) 4.7 3.5-5.1 [facility]loride [id number] 05:50:00* Test Item Value Reference Range Interpretation Comments Chloride Level (test code = 2075-0) 103 98-107 [facility] BrookCarbon Dioxide Jzihr0363-45-11 05:50:00* Test Item Value Reference Range Interpretation Comments Carbon Dioxide Level (test code = 2028-9) 23 22-29 [facility] BrookAnion Jya2705-05-51 05:50:00* Test Item Value Reference Range Interpretation Comments Anion Gap (test code = 01239-3) 13.7 8-16 [facility] Urea Uxseclkw9646-02-56 05:50:00* Test Item Value Reference Range Interpretation Comments Blood Urea Nitrogen (test code = 3094-0) 37 7-26 H [facility] BrookCreatinine2019-10-01 05:50:00* Test Item Value Reference Range Interpretation Comments Creatinine (test code = 2160-0) 1.69 0.72-1.25 H [facility] BrookBUN/Creatinine Agbiz1319-73-73 05:50:00* Test Item Value Reference Range Interpretation Comments BUN/Creatinine Ratio (test code = 3097-3) 22 6-25 [facility] BrookEstimat Glomerular Filtration Rate 2018-11-07 05:50:00* Test Item Value Reference Range Interpretation Comments Estimat Glomerular Filtration Rate (test code = 988002172) 41 >60 L Ranges were taken from the National Kidney Disease Education Program and the [facility] literature.Reference ranges:60 or greater: Tgdlrx80-89 ( for 3 consecutive months): Chronic kidney disease 15 or less: Kidney failureAdventHealth Rollins BrookGlucose Nccpu2549-07-29 05:50:00* Test Item Value Reference Range Interpretation Comments Glucose Level (test code = HTP5367) 314 74-118 H [facility] BrookCalcium Lgxlg3835-50-55 05:50:00* Test Item Value Reference Range Interpretation Comments Calcium Level (test code = 31074-3) 8.7 8.4-10.2 [facility] BrookTotal Ulfxougvf1964-01-09 05:50:00* Test Item Value Reference Range Interpretation Comments Total Bilirubin (test code = 1975-2) 0.5 0.2-1.2 [facility] BrookAspartate Amino Transf (AST/SGOT) 2018-11-07 05:50:00* Test Item Value Reference Range Interpretation Comments Aspartate Amino Transf (AST/SGOT) (test code = Aspartate Amino Transf (AST/SGOT)) 23 5-34 [facility] BrookAlanine Aminotransferase (ALT/SGPT) 2018-11-07 05:50:00* Test Item Value Reference Range Interpretation Comments Alanine Aminotransferase (ALT/SGPT) (test code = 1742-6) 17 0-55 [facility] Hwwqbvk1090-79-78 05:50:00* Test Item Value Reference Range Interpretation Comments Total Protein (test code = 2885-2) 5.6 6.5-8.1 L [facility] BrookAlbumin2019-10-01 05:50:00* Test Item Value Reference Range Interpretation Comments Albumin (test code = 1751-7) 3.0 3.5-5.0 L [facility] BrookGlobulin2019-10-01 05:50:00* Test Item Value Reference Range Interpretation Comments Globulin (test code = 33615-0) 2.6 2.3-3.5 [facility] BrookAlbumin/Globulin Uoppp9004-73-67 05:50:00 * Test Item Value Reference Range Interpretation Comments Albumin/Globulin Ratio (test code = 1759-0) 1.2 0.8-2.0 [facility] BrookAlkaline Ydzzqepryaf7791-89-50 05:50:00* Test Item Value Reference Range Interpretation Comments Alkaline Phosphatase (test code = 6768-6) 73 40-150 [facility] BrookWhite Blood Qgcrr5540-88-16 05:27:00* Test Item Value Reference Range Interpretation Comments White Blood Count (test code = 6690-2) 19.25 4.8-10.8 H [facility] BrookRed Blood Ikbba6492-94-43 05:27:00* Test Item Value Reference Range Interpretation Comments Red Blood Count (test code = 789-8) 3.60 4.3-5.7 L [facility] BrookHemoglobin2019-10-01 05:27:00* Test Item Value Reference Range Interpretation Comments Hemoglobin (test code = 46226-7) 11.3 14.0-18.0 L [facility] BrookHematocrit2019-10-01 05:27:00* Test Item Value Reference Range Interpretation Comments Hematocrit (test code = 4544-3) 32.1 38.2-49.6 L [facility] BrookMean Corpuscular Aujtfn3178-03-59 05:27:00* Test Item Value Reference Range Interpretation Comments Mean Corpuscular Volume (test code = 787-2) 89.2 81-99 [facility] BrookMean Corpuscular Gyspuabccs4947-53-80 05:27:00* Test Item Value Reference Range Interpretation Comments Mean Corpuscular Hemoglobin (test code = 785-6) 31.4 28-32 [facility] BrookMean Corpuscular Hemoglobin Concent 2018-11-07 05:27:00* Test Item Value Reference Range Interpretation Comments Mean Corpuscular Hemoglobin Concent (test code = 786-4) 35.2 31-35 H [facility] BrookRed Cell Distribution Jsxso6005-85-56 05:27:00* Test Item Value Reference Range Interpretation Comments Red Cell Distribution Width (test code = 49417-0) 12.7 11.7 -14.4 [facility] BrookPlatelet Jgphd3553-92-27 05:27:00* Test Item Value Reference Range Interpretation Comments Platelet Count (test code = 777-3) 209 140-360 [facility] BrookNeutrophils (%) (Auto)2018-11-07 05:27:00 * Test Item Value Reference Range Interpretation Comments Neutrophils (%) (Auto) (test code = 52930-0) 89.5 38.7-80.0 H [facility] BrookLymphocytes (%) (Auto)2018-11-07 05:27:00 * Test Item Value Reference Range Interpretation Comments Lymphocytes (%) (Auto) (test code = 736-9) 3.8 18.0-39.1 L [facility] BrookMonocytes (%) (Auto)2018-11-07 05:27:00* Test Item Value Reference Range Interpretation Comments Monocytes (%) (Auto) (test code = 5905-5) 5.9 4.4-11.3 [facility] BrookEosinophils (%) (Auto)2018-11-07 05:27:00 * Test Item Value Reference Range Interpretation Comments Eosinophils (%) (Auto) (test code = 713-8) 0.0 0.0-6.0 [facility] BrookBasophils (%) (Auto)2018-11-07 05:27:00* Test Item Value Reference Range Interpretation Comments Basophils (%) (Auto) (test code = 706-2) 0.2 0.0-1.0 [facility] BrookIM GRANULOCYTES %2018-11-07 05:27:00* Test Item Value Reference Range Interpretation Comments IM GRANULOCYTES % (test code = IM GRANULOCYTES %) 0.6 0.0- 1.0 [facility] BrookNeutrophils # (Auto)2018-11-07 05:27:00* Test Item Value Reference Range Interpretation Comments Neutrophils # (Auto) (test code = 751-8) 17.2 2.1-6.9 H [facility] BrookLymphocytes # (Auto)2018-11-07 05:27:00* Test Item Value Reference Range Interpretation Comments Lymphocytes # (Auto) (test code = 11766-3) 0.7 1.0-3.2 L [facility] BrookMonocytes # (Auto)2018-11-07 05:27:00* Test Item Value Reference Range Interpretation Comments Monocytes # (Auto) (test code = 742-7) 1.1 0.2-0.8 H [facility] BrookEosinophils # (Auto)2018-11-07 05:27:00* Test Item Value Reference Range Interpretation Comments Eosinophils # (Auto) (test code = 711-2) 0.0 0.0-0.4 [facility] BrookBasophils # (Auto)2018-11-07 05:27:00* Test Item Value Reference Range Interpretation Comments Basophils # (Auto) (test code = 704-7) 0.0 0.0-0.1 [facility] BrookAbsolute Immature Granulocyte (auto 2018-11-07 05:27:00* Test Item Value Reference Range Interpretation Comments Absolute Immature Granulocyte (auto (caitlyn t code = Absolute Immature Granulocyte (auto) 0.11 0-0.1 H [facility] BrookBedside Ibbpszn4912-53-33 05:00:00* Test Item Value Reference Range Interpretation Comments Bedside Glucose (test code = 34360-9) 329 70-120 H Meter ID: [id number] [facility] 2018-11-06 12:31:00 [place] [address] Patient Name: SAMMY VALERA MR #: [id number] : 1955 Age/Sex: 62/M Req #: [id number] [facility] Physician: DONNIE DENSON MD Ordered by: DONNIE DENSON MD Report #: [id number] Location: PACU V Room/Bed: V PACU-1 Procedure: [id number] DX /PELVIS AP 1-2 VIEWS Exam Date: 11/06/18 Exam Time: 1200 REPORT STATUS: Signed EXAMI NATION: PELVIS AP 1-2 VIEWS INDICATION: Postoperative COMPARISON: CT pelvis of 10/22/2017 FINDINGS: Portable AP view of the pelvis demonstrates immediate postoperative findings of left total hip replacement. A lignment is anatomic. No unexpected fracture. Small amount of subcutaneous gas . Surgical skin esther in place. IMPRESSION: Anatomic alignment status post left total hip replacement. Signed by: Fanny Ken MD on 11/06/2018 12: 32 PM Dictated By: FANNY KEN MD 1232 Transcribed By: SANDRO on 11/06/18 1232 COPY TO: DONNIE NAGY MD Prothrombin Rcvh4794-44-11 13:39:00* Test Item Value Reference Range Interpretation Comments Prothrombin Time (test code = 5902-2) 12.1 11.9-14.5 [facility] BrookProthromb Time International Ratio 2018-11-03 13:39:00* Test Item Value Reference Range Interpretation Comments Prothromb Time International Ratio (test code = 6301-6) 0.85 Oral Anticoagulant Therapy INR Values:1. Low Intensity Therapy 1.5 - 2.02 . Moderate Intensity Therapy 2.0 - 3.03. High Intensity Therapy(1) 2.5 - 3. 54. High Intensity Therapy(2) 3.0 - 4.05. Panic Value INR > 5.0 [facility] BrookActivated Partial Thromboplast Time 2018-11-03 13:39:00* Test Item Value Reference Range Interpretation Comments Activated Partial Thromboplast Time (test code = 85905-6) 25.6 23.8-35.5 [facility] BrookCHEST 2 QLYLN7104-82-12 13:28:00 [facility] [address] [place] [address] Patient Name: SAMMY VALERA MR #: [id number] : 1955 Age/Sex: 62/M Req #: [id number] Adm Physician: Ordered by: ROMEL COOPER MD Report #: [id number] Location: OR Room/Bed: Procedure: [id number] DX/CHEST 2 VIEWS Exam Date: 11/03/18 Exam Time: 1250 REPORT STATUS: Signed EXAM INATION: CHEST 2 VIEWS INDICATION: Hip pain PREOP [id number] 1250 COMPARISON: 01/31/2014 FINDINGS: TUBES and LINES: Sternal wires. LUNGS: Lungs are well inflated. Lungs are clear. There i s no evidence of pneumonia or pulmonary edema. PLEURA: No pleural effusi on or pneumothorax. HEART AND MEDIASTINUM: The cardiomediastinal silhouett e is unremarkable. BONES AND SOFT TISSUES: No acute osseous lesion. S oft tissues are unremarkable. Chronic appearing deformity of the distal right clavicle. UPPER ABDOMEN: No free air under the diaphragm. IMPRESSI ON: No acute thoracic abnormality. Signed by: Dr. Delano Kenney M.D. o n 11/03/2018 1:29 PM Dictated By: DELANO KENNEY MD, MD Electronically Sign ed By: DELANO KENNEY MD, MD on 11/03/18 132 Transcribed By: SANDRO on 11/03/18 1329 COPY TO: ROMEL COOPER MD Blood Xethkpg9471-20-06 12:50:00* Test Item Value Reference Range Interpretation Comments Blood Culture (test code = 87409759) NO GROWTH AFTER 72 HOURS [facility] BrookBedside Wmxivzx8262-25-31 11:58:00* Test Item Value Reference Range Interpretation Comments Bedside Glucose (test code = 77802-6) 122 70-120 H Meter ID: [id number] [facility] Health System Edinburgodium Level 2017-10-25 05:38:00* Test Item Value Reference Range Interpretation Comments Sodium Level (test code = 2951-2) 144 136-145 [facility] BrookPotassium Awbcz8556-08-99 05:38:00* Test Item Value Reference Range Interpretation Comments Potassium Level (test code = 2823-3) 3.6 3.5-5.1 [facility] BrookChloride Xkopy6295-70-25 05:38:00* Test Item Value Reference Range Interpretation Comments Chloride Level (test code = 2075-0) 106 98-107 [facility] BrookCarbon Dioxide Krrlv5236-70-60 05:38:00* Test Item Value Reference Range Interpretation Comments Carbon Dioxide Level (test code = 2028-9) 28 22-29 [facility] BrookAnion Jrt4691-78-46 05:38:00* Test Item Value Reference Range Interpretation Comments Anion Gap (test code = 54152-2) 13.6 8-16 [facility] BrookBlood Urea Xoerawpw9281-46-50 05:38:00* Test Item Value Reference Range Interpretation Comments Blood Urea Nitrogen (test code = 3094-0) 12 7-26 [facility] BrookCreatinine2018-09-18 05:38:00* Test Item Value Reference Range Interpretation Comments Creatinine (test code = 2160-0) 1.09 0.72-1.25 [facility] BrookBUN/Creatinine Otvkr2364-19-82 05:38:00* Test Item Value Reference Range Interpretation Comments BUN/Creatinine Ratio (test code = 3097-3) 11 6- [facility] BrookEstimat Glomerular Filtration Rate 2017-10-25 05:38:00* Test Item Value Reference Range Interpretation Comments Estimat Glomerular Filtration Rate (test code = 733269613) 60- >60 Ranges were taken from the National Kidney Disease Education Program and the [facility] literature.Reference ranges:60 or greater: Izjghj85-44 ( for 3 consecutive months): Chronic kidney disease 15 or less: Kidney failureAdventHealth Rollins BrookGlucose Qopol0059-17-24 05:38:00* Test Item Value Reference Range Interpretation Comments Glucose Level (test code = PFN3660) 96 74-118 [facility] BrookCalcium Jkhdm0239-31-75 05:38:00* Test Item Value Reference Range Interpretation Comments Calcium Level (test code = 36453-1) 9.1 8.4-10.2 [facility] Wdgaeyemc5017-15-00 05:38:00* Test Item Value Reference Range Interpretation Comments Total Bilirubin (test code = 1975-2) 0.4 0.2-1.2 [facility] BrookAspartate Amino Transf (AST/SGOT) 2017-10-25 05:38:00* Test Item Value Reference Range Interpretation Comments Aspartate Amino Transf (AST/SGOT) (test code = Aspartate Amino Transf (AST/SGOT)) 23 5-34 [facility] BrookAlanine Aminotransferase (ALT/SGPT) 2017-10-25 05:38:00* Test Item Value Reference Range Interpretation Comments Alanine Aminotransferase (ALT/SGPT) (test code = 1742-6) 23 0-55 [facility] Whtxjtd7844-40-16 05:38:00* Test Item Value Reference Range Interpretation Comments Total Protein (test code = 2885-2) 5.5 6.5-8.1 L [facility] BrookAlbumin2018-09-18 05:38:00* Test Item Value Reference Range Interpretation Comments Albumin (test code = 1751-7) 2.8 3.5-5.0 L [facility]Globulin2018-09-18 05:38:00* Test Item Value Reference Range Interpretation Comments Globulin (test code = 15436-6) 2.7 2.3-3.5 [facility] BrookAlbumin/Globulin [id number] 05:38:00 * Test Item Value Reference Range Interpretation Comments Albumin/Globulin Ratio (test code = 1759-0) 1.0 0.8-2.0 [facility] BrookAlkaline Qljsjfhiffh4544-90-71 05:38:00* Test Item Value Reference Range Interpretation Comments Alkaline Phosphatase (test code = 6768-6) 72 40-150 [facility]White Blood Vhthf2640-27-16 05:11:00* Test Item Value Reference Range Interpretation Comments White Blood Count (test code = 6690-2) 7.81 4.8-10.8 [facility]Red Blood Ckwkx6072-53-18 05:11:00* Test Item Value Reference Range Interpretation Comments Red Blood Count (test code = 789-8) 3.78 4.3-5.7 L [facility] BrookHemoglobin2018-09-18 05:11:00* Test Item Value Reference Range Interpretation Comments Hemoglobin (test code = 40460-4) 11.8 14.0-18.0 L [facility]Hematocrit2018-09-18 05:11:00* Test Item Value Reference Range Interpretation Comments Hematocrit (test code = 4544-3) 33.6 38.2-49.6 L [facility] BrookMean Corpuscular Tmjcsx4094-69-58 05:11:00* Test Item Value Reference Range Interpretation Comments Mean Corpuscular Volume (test code = 787-2) 88.9 81-99 [facility] Corpuscular Myizzwkpfh3595-23-82 05:11:00* Test Item Value Reference Range Interpretation Comments Mean Corpuscular Hemoglobin (test code = 785-6) 31.2 28-32 [facility] Corpuscular Hemoglobin Concent 2017-10-25 05:11:00* Test Item Value Reference Range Interpretation Comments Mean Corpuscular Hemoglobin Concent (test code = 786-4) 35.1 31-35 H [facility]Red Cell Distribution Ocwtj4746-74-70 05:11:00* Test Item Value Reference Range Interpretation Comments Red Cell Distribution Width (test code = 36491-4) 12.8 11.7 -14.4 [facility] BrookPlatelet Jevwc4087-89-48 05:11:00* Test Item Value Reference Range Interpretation Comments Platelet Count (test code = 777-3) 184 140-360 [facility] BrookNeutrophils (%) (Auto)2017-10-25 05:11:00 * Test Item Value Reference Range Interpretation Comments Neutrophils (%) (Auto) (test code = 60535-4) 67.1 38.7-80.0 [facility] BrookLymphocytes (%) (Auto)2017-10-25 05:11:00 * Test Item Value Reference Range Interpretation Comments Lymphocytes (%) (Auto) (test code = 736-9) 16.6 18.0-39.1 L [facility] BrookMonocytes (%) (Auto)2017-10-25 05:11:00* Test Item Value Reference Range Interpretation Comments Monocytes (%) (Auto) (test code = 5905-5) 11.8 4.4-11.3 H [facility] BrookEosinophils (%) (Auto)2017-10-25 05:11:00 * Test Item Value Reference Range Interpretation Comments Eosinophils (%) (Auto) (test code = 713-8) 3.5 0.0-6.0 [facility] BrookBasophils (%) (Auto)2017-10-25 05:11:00* Test Item Value Reference Range Interpretation Comments Basophils (%) (Auto) (test code = 706-2) 0.5 0.0-1.0 [facility] BrookIM GRANULOCYTES %2017-10-25 05:11:00* Test Item Value Reference Range Interpretation Comments IM GRANULOCYTES % (test code = IM GRANULOCYTES %) 0.5 0.0- 1.0 [facility] BrookNeutrophils # (Auto)2017-10-25 05:11:00* Test Item Value Reference Range Interpretation Comments Neutrophils # (Auto) (test code = 751-8) 5.2 2.1-6.9 [facility] BrookLymphocytes # (Auto)2017-10-25 05:11:00* Test Item Value Reference Range Interpretation Comments Lymphocytes # (Auto) (test code = 45743-3) 1.3 1.0-3.2 [facility] BrookMonocytes # (Auto)2017-10-25 05:11:00* Test Item Value Reference Range Interpretation Comments Monocytes # (Auto) (test code = 742-7) 0.9 0.2-0.8 H [facility]Eosinophils # (Auto)2017-10-25 05:11:00* Test Item Value Reference Range Interpretation Comments Eosinophils # (Auto) (test code = 711-2) 0.3 0.0-0.4 [facility]Basophils # (Auto)2017-10-25 05:11:00* Test Item Value Reference Range Interpretation Comments Basophils # (Auto) (test code = 704-7) 0.0 0.0-0.1 [facility] BrookAbsolute Immature Granulocyte (auto 2017-10-25 05:11:00* Test Item Value Reference Range Interpretation Comments Absolute Immature Granulocyte (auto (caitlyn t code = Absolute Immature Granulocyte (auto) 0.04 0-0.1 [facility] BrookHemoglobin A1c Cbqfbjn4811-63-57 11:08:00 * Test Item Value Reference Range Interpretation Comments Hemoglobin A1c Percent (test code = Hemoglobin A1c Percent) 5.9 4.0-7.0 [facility] BrookVancomycin Level Cgrslm6750-01-10 00:38:00* Test Item Value Reference Range Interpretation Comments Vancomycin Level Trough (test code = 4092-3) 8.2 5.0-10.0 [facility] BrookProthrombin Xbkq1851-68-73 05:08:00* Test Item Value Reference Range Interpretation Comments Prothrombin Time (test code = 5902-2) 13.5 11.9-14.5 [facility] BrookProthromb Time International Ratio 2017-10-23 05:08:00* Test Item Value Reference Range Interpretation Comments Prothromb Time International Ratio (test code = 6301-6) 1.11 Oral Anticoagulant Therapy INR Values:1. Low Intensity Therapy 1.5 - 2.02 . Moderate Intensity Therapy 2.0 - 3.03. High Intensity Therapy(1) 2.5 - 3. 54. High Intensity Therapy(2) 3.0 - 4.05. Panic Value INR > 5.0 [facility] BrookActivated Partial Thromboplast Time 2017-10-23 05:08:00* Test Item Value Reference Range Interpretation Comments Activated Partial Thromboplast Time (test code = 28263-0) 30.1 23.8-35.5 [facility]CT PEL[facility] WITH -[id number] 10:04:00 [place] [address] Patient Name: SAMMY VALERA MR #: [id number] : 1955 Age/Sex: 61/M Req #: [id number] [facility] Physician: Ordered by: VALERIA SOTO MD Report #: [id number] Location: [facility] Room /Bed: Procedure: HOPD/CT PELVIS WITH -HOPD Exam Date: Exam Time: REPORT STATUS: Signed EXAM: CT Pelvis WITH contrast INDICATION: ABSCESSES TO THE BUTTOCKS. LEFT- SIDED PERIRECTAL ABSCESS. COMPARISON: None. TECHNIQUE: Pelvis were sc anned utilizing a multidetector helical scanner from the iliac crest to the pu bic symphysis after administration of IV contrast. Coronal and sagittal reform ations were obtained. Routine protocol was performed. Scan was performed when during portal venous phase. IV CONTRAST: 95 mL of Isovue 300 ORAL CONTRAST: Water COMPLICATIONS: None RADIATION DOSE: Total DLP: 391.09 mGy*cm Estimated effective dose: (DLP x 0.015 x size f actor) mSv CTDIvol has been reviewed. It is below the limits set by the R adiation Protocol Committee (RPC). FINDINGS: LINES and TUBES: None. GI TRACT: No abnormal distention, wall thickening, or evidence of bowel o bstruction. Appendix is normal. PELVIC ORGANS/BLADDER: Unremarkable. LYMPH NODES: No lymphadenopathy. VESSELS: Unremarkable. PERITONEUM / RETROPERITONEUM: No free air or fluid. BONES: Unremarkable. SOFT T ISSUES: Soft tissue inflammatory changes measuring 1.5 x 3.2 cm in the left gl uteal fold. This extends superiorly but does not involve the anus. No actual f luid collection. IMPRESSION: Left gluteal inflammatory baeza es without discrete abscess collection. Signed by: Dr. Carter Richmond M.D. on 10/08 10:07 AM Dictated By: CARTER RICHMOND MD [id number] Transcribed By: SANDRO on 10/22/17 1007 COPY TO: VALERIA SOTO MD
== END | disposition home or self-care (01) ==
LOC: ER 05:35 → CATH LAB 08:55
PROVIDERS: ATTEND Internal Medicine Interventional Cardiology
DX: I25.118 Atherosclerotic heart disease of native coronary artery with other forms of angina pectoris (principal); I10 Essential (primary) hypertension; I87.2 Venous insufficiency (chronic) (peripheral); E11.9 Type 2 diabetes mellitus without complications; Z79.84 Long term (current) use of oral hypoglycemic drugs; Z79.82 Long term (current) use of aspirin; Z79.02 Long term (current) use of antithrombotics/antiplatelets; Z95.2 Presence of prosthetic heart valve; Z95.5 Presence of coronary angioplasty implant and graft; Z86.32 Personal history of gestational diabetes; Z87.891 Personal history of nicotine dependence; Z82.49 Family history of ischemic heart disease and other diseases of the circulatory system; Z83.3 Family history of diabetes mellitus
CPT/HCPCS: 36415; 71045; 76937; 80053; 82550; 82553; 84484; 85025; 85610; 85730; 92928; 93005; 93454; 99284; C1725; C1769; C1874; C1887 ×2; J0583; J2001; J2250; J3010; J7030; Q9967; 99152; 99153

== ENCOUNTER 2021-04-10 10:42 | Observation (INO) | payer MEDICARE, OTHER ==
[~2021-04-10] VITALS: Ht 180.3 cm; Wt 106.6 kg
[~2021-04-10 10:42] MED LIST changes: -ASPIRIN 325 MG TAB ONE; -BIVALRIUDIN 250 MG/VIAL VIAL IV ONE; -FENTANYL CITRATE/PF 100MCG/2 ML INJ ONE; -HEPARIN SOD/SOD CHLORIDE 2,000 ML ONE; -IOPAMIDOL 370 MG/ML 200 ML INFUS..BTL INJ ONE; -LIDOCAINE HCL 2% LOCAL 20 ML VIAL ONE; -MIDAZOLAM HCL 2 MG/2 ML VIAL ONE; -PRASUGREL 10 MG TAB ONE; -SODIUM CHLORIDE 0.9% 1000ML 1,000 ML ONE; -SODIUM CHLORIDE 0.9% 50ML 50 ML ONE
[2021-04-10 11:12] LABS: BASOPHILS % 0.6 % (0.0-1.0); EOSINOPHILS # (AUTO) 0.2 (0.0-0.4); EOSINOPHILS % 2.3 % (0.0-6.0); HEMATOCRIT 37.9 % (38.2-49.6); HEMOGLOBIN 13.5 g/dL (14.0-18.0); LYMPHOCYTES # (AUTO) 1.3 (1.0-3.2); LYMPHOCYTES % 18.5 % (18.0-39.1); MEAN CORPUSCULAR HEMOGLOBIN 32.1 pg (28-32); MEAN CORPUSCULAR HGB CONC 35.6 g/dL (31-35); MEAN CORPUSCULAR VOLUME 90.2 fL (81-99); MONOCYTES # (AUTO) 0.7 (0.2-0.8); MONOCYTES % 9.5 % (4.4-11.3); NEUTROPHILS % 68.5 % (38.7-80.0); PLATELET COUNT 219 x10e3/uL (140-360); RED CELL DISTRIBUTION WIDTH 13.3 % (11.7-14.4)
[2021-04-10 11:26] LABS: INR 0.86; PROTHROMBIN TIME 12.5 seconds (11.9-14.5)
[2021-04-10 11:33] LABS: ALBUMIN 3.5 g/dL (3.5-5.0); ALBUMIN/GLOBULIN RATIO 1.2 (0.8-2.0); ANION GAP 13.3 mmol/L (8-16); CALCIUM 9.5 mg/dL (8.4-10.2); CREATININE, SERUM 2.44 mg/dL (0.72-1.25); POTASSIUM 4.3 mmol/L (3.5-5.1)
[2021-04-10] MEDS ORDERED: ASPIRIN 81 MG CHEW TAB PO ONE (12:15)
[2021-04-10] MEDS: SODIUM CHLORIDE 0.9% 1000ML 1,000 ML IV SCH ×3 (15:15→23:58)
[2021-04-10 16:55] VITALS: BP 129/67
[2021-04-10 20:00] VITALS: BP 138/82
[2021-04-10 20:18] VITALS: BP 129/67
[2021-04-10] MEDS ORDERED: CYCLOBENZAPRINE HCL 10 MG TAB PO PRN (22:45)
[2021-04-10] MEDS ORDERED: ZOLPIDEM TARTRATE 10 MG TAB PO PRN (22:45)
[2021-04-10] MEDS ORDERED: ATORVASTATIN 40 MG TAB PO SCH (23:00)
[2021-04-11] VITALS: BP 127/68
[2021-04-11 04:00] VITALS: BP 126/65
[2021-04-11 07:44] VITALS: BP 120/65
[2021-04-11 07:51] VITALS: BP 120/65
[2021-04-11] MEDS: SODIUM CHLORIDE 0.9% 1000ML 1,000 ML IV SCH (08:30)
[2021-04-11] MEDS ORDERED: VASCEPA PO SCH (09:00)
[2021-04-11] MEDS ORDERED: PRASUGREL 10 MG TAB PO SCH (09:00)
[2021-04-11] MEDS ORDERED: AMLODIPINE BESYLATE 5 MG TAB PO SCH (09:00)
[2021-04-11] MEDS ORDERED: FUROSEMIDE 40 MG TAB PO SCH (09:00)
[2021-04-11] MEDS ORDERED: PANTOPRAZOLE SOD 40 MG TABEC PO SCH (09:00)
[2021-04-11] MEDS ORDERED: LIRAGLUTIDE 1.8 MG SC SCH (09:00)
[2021-04-11] MEDS ORDERED: ASPIRIN 81 MG ENTERIC COATED PO SCH (09:00)
[2021-04-11] MEDS ORDERED: MULTIVITAMINS/MINERALS TAB PO SCH (09:00)
[2021-04-11] MEDS ORDERED: CARVEDILOL 12.5 MG TAB PO SCH (09:00)
[2021-04-11] MEDS ORDERED: ALLOPURINOL 100 MG TAB PO SCH (09:00)
[2021-04-11] MEDS ORDERED: CHOLECALCIFEROL 1,000 UNIT TAB PO SCH (09:00)
[2021-04-11] MEDS ORDERED: VALSARTAN 160 MG TAB PO SCH (09:00)
[2021-04-11] MEDS ORDERED: TRESIBA SC SCH (09:00)
[2021-04-11 11:40] VITALS: BP 130/80
[2021-04-11 12:10] LABS: BASOPHILS % 0.5 % (0.0-1.0); EOSINOPHILS # (AUTO) 0.3 (0.0-0.4); EOSINOPHILS % 3.5 % (0.0-6.0); HEMOGLOBIN 13.9 g/dL (14.0-18.0); LYMPHOCYTES # (AUTO) 1.5 (1.0-3.2); LYMPHOCYTES % 20.1 % (18.0-39.1); MEAN CORPUSCULAR HEMOGLOBIN 31.7 pg (28-32); MEAN CORPUSCULAR HGB CONC 34.8 g/dL (31-35); MEAN CORPUSCULAR VOLUME 91.3 fL (81-99); MONOCYTES # (AUTO) 0.7 (0.2-0.8); MONOCYTES % 9.9 % (4.4-11.3); NEUTROPHILS # (AUTO) 4.9 (2.1-6.9); NEUTROPHILS % 65.6 % (38.7-80.0); PLATELET COUNT 218 x10e3/uL (140-360); RED BLOOD COUNT 4.38 x10e6/uL (4.3-5.7); RED CELL DISTRIBUTION WIDTH 13.3 % (11.7-14.4)
[2021-04-11 12:25] LABS: ANION GAP 12.5 mmol/L (8-16); CALCIUM 9.4 mg/dL (8.4-10.2); CREATININE, SERUM 1.65 mg/dL (0.72-1.25); POTASSIUM 4.5 mmol/L (3.5-5.1)
== END 2021-04-11 16:00 | disposition home or self-care (01) ==
LOC: ER 10:54 → ERHOLD 13:09 → MED/SURG3 16:38
PROVIDERS: ADMIT Internal Medicine Interventional Cardiology; ATTEND Internal Medicine Interventional Cardiology
DX: N17.9 Acute kidney failure, unspecified (principal); I25.10 Atherosclerotic heart disease of native coronary artery without angina pectoris; I25.119 Atherosclerotic heart disease of native coronary artery with unspecified angina pectoris; M54.2 Cervicalgia; I48.91 Unspecified atrial fibrillation; Z79.01 Long term (current) use of anticoagulants; Z95.2 Presence of prosthetic heart valve; Z20.822 Contact with and (suspected) exposure to COVID-19; I12.9 Hypertensive chronic kidney disease with stage 1 through stage 4 chronic kidney disease, or unspecified chronic kidney disease; E11.22 Type 2 diabetes mellitus with diabetic chronic kidney disease; N18.9 Chronic kidney disease, unspecified; Z79.899 Other long term (current) drug therapy
CPT/HCPCS: 36415; 70450; 71045; 80048; 80053; 82948; 83880; 84484; 85025; 85610; 93005; 94799; 99285; G0378; J7030; U0002

== ENCOUNTER → 2021-12-08 | Outpatient (CLI) | payer MEDICARE, OTHER | LOC: RAD 15:11 | PROVIDERS: ATTEND Internal Medicine | DX: Z01.818 Encounter for other preprocedural examination (principal) | CPT/HCPCS: 71046 ==

== ENCOUNTER 2022-04-22 13:05 | Emergency (ER) | payer MEDICARE, OTHER ==
[~2022-04-22] VITALS: Ht 180.3 cm; Wt 106.6 kg
[2022-04-22 13:46] LABS: BASOPHILS # (AUTO) 0.1 (0.0-0.1); BASOPHILS % 0.5 % (0.0-1.0); EOSINOPHILS # (AUTO) 0.2 (0.0-0.4); EOSINOPHILS % 1.7 % (0.0-6.0); HEMATOCRIT 30.1 % (38.2-49.6); LYMPHOCYTES # (AUTO) 1.1 (1.0-3.2); LYMPHOCYTES % 10.4 % (18.0-39.1); MEAN CORPUSCULAR HEMOGLOBIN 32.5 pg (28-32); MEAN CORPUSCULAR HGB CONC 33.2 g/dL (31-35); MEAN CORPUSCULAR VOLUME 97.7 fL (81-99); MONOCYTES # (AUTO) 1.5 (0.2-0.8); MONOCYTES % 13.7 % (4.4-11.3); NEUTROPHILS # (AUTO) 7.8 (2.1-6.9); NEUTROPHILS % 72.8 % (38.7-80.0); PLATELET COUNT 198 x10e3/uL (140-360); RED BLOOD COUNT 3.08 x10e6/uL (4.3-5.7); RED CELL DISTRIBUTION WIDTH 13.2 % (11.7-14.4)
[2022-04-22 14:08] LABS: ALBUMIN 2.5 g/dL (3.5-5.0); ALBUMIN/GLOBULIN RATIO 0.9 (0.8-2.0); ANION GAP 12.2 mmol/L (8-16); CALCIUM 8.1 mg/dL (8.4-10.2); CREATININE, SERUM 2.06 mg/dL (0.72-1.25); POTASSIUM 4.2 mmol/L (3.5-5.1)
== END 2022-04-22 15:26 | disposition home or self-care (01) ==
LOC: ER 13:13
DX: R55 Syncope and collapse (principal); R42 Dizziness and giddiness; E11.65 Type 2 diabetes mellitus with hyperglycemia; I10 Essential (primary) hypertension; I48.91 Unspecified atrial fibrillation; I25.10 Atherosclerotic heart disease of native coronary artery without angina pectoris; K21.9 Gastro-esophageal reflux disease without esophagitis; Z20.822 Contact with and (suspected) exposure to COVID-19; Z95.4 Presence of other heart-valve replacement; Z96.641 Presence of right artificial hip joint
CPT/HCPCS: 36415; 70450; 71045; 80053; 83880; 84484; 85025; 93005; 99285; U0002

== ENCOUNTER → 2024-10-16 | Outpatient (REF) | payer MEDICARE ==
[~2024-10-16] MED LIST changes: +AZOR 10-40 MG1 EACH PO; +DESVENLAFAXINE50 M1 PO; +FENOFIBRATE145 MG PO; +KERENDIA10 MG PO; +MAGNESIUM OXID400 MG PO; +OZEMPIC0.25 MG/02 SC; +TRAZODONE HCL50 MG PO; +VIT D3 PO
== END ==
LOC: RAD 14:48
PROVIDERS: ATTEND Internal Medicine
DX: M25.511 Pain in right shoulder (principal); M25.551 Pain in right hip